=== PATIENT | female | born 1945 | race Caucasian/White ===

== ENCOUNTER 2019-05-24 14:30 | Outpatient (CLI) | payer MEDICARE ==
--- NOTE | 2019-05-25 09:35 | Mammography Report ---
Reason: ROUTINE MAMMO Procedure Date: 05/24/2019 Accession Number: [id number] / [id number] Procedure: MGS - Screening Mammo Dig Bilat CPT Code: Final Report FULL RESULT: EXAM: Screening Mammo Dig Bilat DATE: 05/24/2019 2:50 PM CLINICAL HISTORY: Screening encounter. History of nulliparity. TECHNIQUE: (B) - Bilateral CC, laterally exaggerated CC, MLO views were obtained. COMPARISON: 10/22/2014 through 04/27/2011. PARENCHYMAL PATTERN: (D) - The breast(s) demonstrate(s) heterogeneously dense fibroglandular parenchyma. FINDINGS: There are no suspicious masses, calcifications, or areas of distortion. IMPRESSION: Negative examination. BI-RADS category 1. RECOMMENDATION: (ANNUAL) - Recommend routine annual screening mammography. BI-RADS CATEGORY: (1) - Negative. STANDARD QUALIFYING STATEMENTS: 1. This examination was reviewed with the aid of Computer-Aided Detection (CAD). 2. A negative or benign imaging report should not preclude biopsy if clinically suspicious findings are present. 3. Dense breasts may obscure an underlying neoplasm. 4. This examination was reviewed without the aid of 3D breast imaging (tomosynthesis).
== END 2019-05-24 14:31 | disposition home or self-care (01) ==
LOC: DI.S 14:30
PROVIDERS: ATTEND Nurse Practitioner Family
DX: Z12.31 Encounter for screening mammogram for malignant neoplasm of breast (principal)
CPT/HCPCS: 77067

== ENCOUNTER 2021-04-23 15:41 | Outpatient (CLI) | payer MEDICARE ==
[2021-04-23 19:53] LABS: BASOPHILS # (AUTO) 0.1 10^3/uL (0.0-0.1); BASOPHILS % (AUTO) 1.3 %; EOSINOPHILS # (AUTO) 0.3 10^3/uL (0.0-0.7); EOSINOPHILS % (AUTO) 6.2 %; HCT - HEMATOCRIT 42.3 % (37.0-47.0); HGB - HEMOGLOBIN 13.1 g/dL (12.0-16.0); LYMPHOCYTES # (AUTO) 1.7 10^3/uL (1.5-3.5); LYMPHOCYTES % (AUTO) 32.7 %; MEAN CORPUSCULAR HEMOGLOBIN 31.1 pg (27.0-31.0); MEAN CORPUSCULAR VOLUME 100.5 fL (81.0-99.0); MEAN PLATELET VOLUME 12.3 fL (7.9-10.8); MONOCYTES # (AUTO) 0.3 10^3/uL (0.0-1.0); MONOCYTES % (AUTO) 5.9 %; NEUTROPHILS # (AUTO) 2.9 10^3/uL (1.5-6.6); NEUTROPHILS % (AUTO) 53.9 %; PLT - PLATELET COUNT 215 10^3/uL (130-450); RED BLOOD COUNT 4.21 10^6/uL (4.20-5.40); WHITE BLOOD COUNT 5.3 x10^3/uL (4.8-10.8)
[2021-04-23 20:19] LABS: ALBUMIN 4.2 g/dL (3.2-5.5); ALBUMIN/GLOBULIN RATIO 1.4 (1.0-2.2); ALKALINE PHOSPHATASE 84 IU/L (42-121); ALT ALANINE AMINOTRANSFERASE 19 IU/L (10-60); AST ASPARTATE AMINOTRANSFERASE 23 IU/L (10-42); BILIRUBIN,TOTAL 0.5 mg/dL (0.2-1.0); BUN - BLOOD UREA NITROGEN 22 mg/dL (6-20); CALCIUM 9.6 mg/dL (8.5-10.3); CARBON DIOXIDE - CO2 30 mmol/L (21-32); CHLORIDE 104 mmol/L (101-111); CHOL/HDL RATIO 3.2 (<4.4); CHOLESTEROL 188 mg/dL; CREATININE 0.6 mg/dL (0.4-1.0); GFR - MDRD 98 (>89); GLUCOSE 97 mg/dL (70-100); HDL CHOLESTEROL 58 mg/dL; LDL CHOLESTEROL,CALCULATED 109 mg/dL; LDL/HDL RATIO 1.9 (<4.4); POTASSIUM 3.7 mmol/L (3.5-5.0); SODIUM 142 mmol/L (135-145); TOTAL PROTEIN 7.1 g/dL (6.7-8.2); TRIGLYCERIDES 103 mg/dL; VLDL CHOLESTEROL 21 mg/dL
[2021-04-23 20:31] LABS: THYROID STIMULATING HORMONE 4.67 uIU/mL (0.34-5.60)
== END 2021-04-23 15:42 | disposition home or self-care (01) ==
LOC: LAB.S 15:41
PROVIDERS: ATTEND Nurse Practitioner Family
DX: E78.5 Hyperlipidemia, unspecified (principal); F51.09 Other insomnia not due to a substance or known physiological condition
CPT/HCPCS: 36415; 80053; 80061; 83721; 84443; 85025

== ENCOUNTER 2021-04-27 17:38 | Outpatient (CLI) | payer MEDICARE | END 2021-04-27 17:39 | disposition home or self-care (01) | LOC: LAB.S 17:38 | PROVIDERS: ATTEND Nurse Practitioner Family | DX: D75.89 Other specified diseases of blood and blood-forming organs (principal) | CPT/HCPCS: 36415; 82607; 82746; 82977 ==

== ENCOUNTER 2022-05-14 15:43 | Outpatient (CLI) | payer MEDICARE ==
--- NOTE | 2022-05-14 17:09 | XRAY Report ---
PROCEDURE: Knee 3 View LT INDICATIONS: LEFT KNEE PAIN TECHNIQUE: 3 views of the left knee(s) were acquired. COMPARISON: None. FINDINGS: Bones: No fractures or dislocations. No suspicious bony lesions. Soft tissues: No joint effusion. No suspicious soft tissue calcifications. IMPRESSION: No evidence acute bony abnormality of the left knee. If clinical suspicion and/or symptoms persist, further assessment with repeat plain films or advanced imaging (e.g., CT, MRI, or bone scan) may be helpful for further assessment. Reviewed by: Ramakrishna Leslie MD on 05/14/2022 5:08 PM PST Approved by: Ramakrishna Leslie MD on 05/14/2022 5:08 PM PST Station ID: [id number]
--- NOTE | 2022-05-14 17:49 | XRAY Report ---
PROCEDURE: Lumbar Spine 2 View INDICATIONS: VERTEBROGENIC LOW BACK PAIN TECHNIQUE: 2 views of the lumbar spine were acquired. COMPARISON: None. FINDINGS: Bones: 5 gah-rtj-ebwkhle vertebrae are present. There is normal bony alignment. No vertebral body compression fractures. No suspicious bony lesions. Disc space narrowing and hypertrophic facet join ts noted in the lower lumbar spine with L4-5 foraminal stenosis. Soft tissues: Overlying bowel gas pattern is normal. No suspicious soft tissue calcifications. Larg e amount of fecal debris in the right colon IMPRESSION: Degenerative disc disease and arthropathy without fracture or malalignment. L4-5 foraminal stenosis. Large amount of fecal debris in the right colon Reviewed by: Gaudencio Andrew MD on 05/14/2022 4:48 PM AKST Approved by: Gaudencio Andrew MD on 05/14/2022 4:48 PM AKST Station ID: [id number]
--- NOTE | 2022-05-14 18:06 | XRAY Report ---
PROCEDURE: Thoracic Spine 2 View INDICATIONS: THORACIC BACK PAIN TECHNIQUE: 2 views of the thoracic spine were acquired. COMPARISON: 05/02/2015 FINDINGS: Bones: No fractures or dislocations. No suspicious bony lesions. 12 pairs of ribs are noted, and a ppear intact where visualized. Generalized decreased osseous mineralization present. Soft tissues: No paravertebral stripe thickening. IMPRESSION: Osteopenia without fracture or malalignment Reviewed by: Gaudencio Andrew MD on 05/14/2022 5:04 PM AK Approved by: Guadencio Andrew MD on 05/14/2022 5:04 PM AK Station ID: [id number]
--- NOTE | 2022-05-14 18:32 | XRAY Report ---
PROCEDURE: Hip w/Pelvis 1V LT INDICATIONS: LEFT HIP PAIN TECHNIQUE: AP pelvis with lateral view(s) of the left hip(s). COMPARISON: None. FINDINGS: Bones: No fractures or dislocations. Pelvic ring appears intact. No suspicious bony lesions. Soft tissues: The visualized bowel gas pattern is normal. No suspicious soft tissue calcifications. IMPRESSION: Unremarkable left hip radiograph Reviewed by: Gaudencio Andrew MD on 05/14/2022 5:30 PM [place] Approved by: Gaudencio Andrew MD on 05/14/2022 5:30 PM [place] Station ID: [id number]
[2022-05-14 19:55] LABS: BASOPHILS % (AUTO) 0.7 %; HGB - HEMOGLOBIN 12.9 g/dL (12.0-16.0); LYMPHOCYTES % (AUTO) 23.9 %; MEAN CORPUSCULAR HEMOGLOBIN 31.6 pg (27.0-31.0); MEAN CORPUSCULAR HGB CONC 31.5 g/dL (32.0-36.0); MEAN CORPUSCULAR VOLUME 100.5 fL (81.0-99.0); MEAN PLATELET VOLUME 12.8 fL (7.9-10.8); MONOCYTES # (AUTO) 0.4 10^3/uL (0.0-1.0); MONOCYTES % (AUTO) 9.9 %; NEUTROPHILS # (AUTO) 2.7 10^3/uL (1.5-6.6); NEUTROPHILS % (AUTO) 64.3 %; PLT - PLATELET COUNT 158 10^3/uL (130-450); RED BLOOD COUNT 4.08 10^6/uL (4.20-5.40); RED CELL DISTRIBUTION WIDTH 12.2 % (12.0-15.0); WHITE BLOOD COUNT 4.2 x10^3/uL (4.8-10.8)
[2022-05-14 20:09] LABS: ALBUMIN/GLOBULIN RATIO 1.4 (1.0-2.2); ALKALINE PHOSPHATASE 80 IU/L (42-121); ALT ALANINE AMINOTRANSFERASE 230 IU/L (10-60); AST ASPARTATE AMINOTRANSFERASE 143 IU/L (10-42); BILIRUBIN,TOTAL 0.4 mg/dL (0.2-1.0); BUN - BLOOD UREA NITROGEN 31 mg/dL (6-20); CARBON DIOXIDE - CO2 30 mmol/L (21-32); CHLORIDE 103 mmol/L (101-111); CREATININE 0.6 mg/dL (0.4-1.0); GFR - MDRD 97 (>89); GLUCOSE 92 mg/dL (70-100); POTASSIUM 3.9 mmol/L (3.5-5.0); SODIUM 138 mmol/L (135-145); TOTAL PROTEIN 6.8 g/dL (6.7-8.2)
[2022-05-14 20:18] LABS: CRP - C-REACTIVE PROTEIN < 1.0 mg/dL (0-1.0)
== END 2022-05-14 15:44 | disposition home or self-care (01) ==
LOC: DI.S 15:43
PROVIDERS: ATTEND Nurse Practitioner Family
DX: M25.562 Pain in left knee (principal); M25.552 Pain in left hip; M47.816 Spondylosis without myelopathy or radiculopathy, lumbar region; M85.88 Other specified disorders of bone density and structure, other site; M48.061 Spinal stenosis, lumbar region without neurogenic claudication; D75.89 Other specified diseases of blood and blood-forming organs; R53.81 Other malaise; T56.1X1A Toxic effect of mercury and its compounds, accidental (unintentional), initial encounter; Z77.010 Contact with and (suspected) exposure to arsenic
CPT/HCPCS: 36415; 80053; 82175; 82607; 82746; 83825; 85025; 85651; 86140

== ENCOUNTER 2022-05-31 14:56 | Outpatient (CLI) | payer MEDICARE ==
[2022-05-31 20:17] LABS: ALKALINE PHOSPHATASE 87 IU/L (42-121); ALT ALANINE AMINOTRANSFERASE 55 IU/L (10-60); AST ASPARTATE AMINOTRANSFERASE 33 IU/L (10-42); BILIRUBIN,TOTAL 0.4 mg/dL (0.2-1.0); TOTAL PROTEIN 6.8 g/dL (6.7-8.2)
[2022-05-31 20:27] LABS: BILIRUBIN,DIRECT < 0.1 mg/dL (0.1-0.5)
[2022-06-02 04:08] LABS: HCV AB <0.1 s/co ratio (0.0-0.9)
== END 2022-05-31 14:57 | disposition home or self-care (01) ==
LOC: LAB.S 14:56
PROVIDERS: ATTEND Nurse Practitioner Family
DX: R94.5 Abnormal results of liver function studies (principal); Z11.59 Encounter for screening for other viral diseases
CPT/HCPCS: 36415; 80076; 86803

== ENCOUNTER 2023-01-05 16:49 | Outpatient (CLI) | payer MEDICARE ==
--- NOTE | 2023-01-06 15:32 | XRAY Report ---
PROCEDURE: Toe(s) LT INDICATIONS: LEFT 2ND TOE PAIN TECHNIQUE: 3 views of the second toe(s) acquired. COMPARISON: none FINDINGS: Bones: Avulsion fracture at the base of the distal second phalaynxNo with intra-articular extension. Suspicious bony lesions. Soft tissues: No suspicious soft tissue densities. IMPRESSION: Image articular avulsion fracture at the base of the second distal phalanx. Reviewed by: Lori Rod MD on 01/06/2023 3:30 PM PDT Approved by: Lori Rod MD on 01/06/2023 3:30 PM PDT Station ID: [id number]
== END 2023-01-05 23:59 | disposition home or self-care (01) ==
LOC: DI.S 16:49
PROVIDERS: ATTEND Internal Medicine
DX: S92.532A Displaced fracture of distal phalanx of left lesser toe(s), initial encounter for closed fracture (principal)
CPT/HCPCS: 73660

== ENCOUNTER 2023-01-07 18:50 | Outpatient (CLI) | payer MEDICARE ==
--- NOTE | 2023-01-10 03:07 | CT Report ---
PROCEDURE: THORACIC SPINE WO INDICATIONS: THORACIC BACK PAIN TECHNIQUE: Noncontrast 3 mm thick sections acquired through the region of interest in the thoracic spine. Sagit anne and coronal reformats were then constructed. For radiation dose reduction, the following was used : automated exposure control, adjustment of mA and/or kV according to patient size. COMPARISON: Thoracic spine x-ray 05/14/2022.. FINDINGS: Image quality: Excellent. Bones: There is a minimal rightward curvature of the thoracic spine. No acute vertebral body stuart wallace fractures. There is mild multilevel degenerative disease predominantly within the mid thoracic s pine. No suspicious sclerotic or lytic bony lesions. Central spinal canal is of normal overall calib er. No high-grade spinal canal or neuroforaminal narrowing. Soft tissues: No paravertebral masses or hematomas. Visualized posteromedial lungs appear clear. IMPRESSION: 1. No fractures or subluxation. 2. Mild multilevel degenerative disc disease. Reviewed by: Ian Chapman MD on 01/10/2023 3:06 AM PDT Approved by: Ian Chapman MD on 01/10/2023 3:06 AM PDT Station ID: [id number]
== END 2023-01-07 18:51 | disposition home or self-care (01) ==
LOC: DI 18:50
PROVIDERS: ATTEND Nurse Practitioner Family
DX: M51.34 Other intervertebral disc degeneration, thoracic region (principal)

== ENCOUNTER 2023-01-27 19:39 | Inpatient (IN) | payer MEDICARE ==
[2023-01-27 20:19] LABS: BASOPHILS % (AUTO) 0.1 %; HCT - HEMATOCRIT 46.7 % (37.0-47.0); HGB - HEMOGLOBIN 14.9 g/dL (12.0-16.0); LYMPHOCYTES # (AUTO) 0.6 10^3/uL (1.5-3.5); LYMPHOCYTES % (AUTO) 3.8 %; MEAN CORPUSCULAR HEMOGLOBIN 30.6 pg (27.0-31.0); MEAN CORPUSCULAR HGB CONC 31.9 g/dL (32.0-36.0); MEAN CORPUSCULAR VOLUME 95.9 fL (81.0-99.0); MEAN PLATELET VOLUME 12.7 fL (7.9-10.8); MONOCYTES # (AUTO) 0.3 10^3/uL (0.0-1.0); MONOCYTES % (AUTO) 1.9 %; NEUTROPHILS % (AUTO) 93.9 %; PLT - PLATELET COUNT 139 10^3/uL (130-450); RED BLOOD COUNT 4.87 10^6/uL (4.20-5.40); RED CELL DISTRIBUTION WIDTH 12.9 % (12.0-15.0); WHITE BLOOD COUNT 14.9 x10^3/uL (4.8-10.8)
[2023-01-27 20:30] LABS: INR 1.1 (0.8-1.2); PT - PROTHROMBIN TIME 11.9 secs (9.9-12.6)
[2023-01-27 20:33] LABS: ALBUMIN 4.7 g/dL (3.2-5.5); ALBUMIN/GLOBULIN RATIO 1.6 (1.0-2.2); BILIRUBIN,TOTAL 1.2 mg/dL (0.2-1.0); CREATININE 0.7 mg/dL (0.6-1.3); MAGNESIUM 1.9 mg/dL (1.7-2.3); POTASSIUM 3.8 mmol/L (3.5-4.5); TOTAL PROTEIN 7.6 g/dL (6.4-8.9)
[2023-01-27] MEDS ORDERED: MORPHINE 2 MG/ML CARPUJECT IVP STA (20:34)
[2023-01-27] MEDS ORDERED: SODIUM CHLORIDE 0.9% 1,000 ML IV STA (20:35)
[2023-01-27] MEDS ORDERED: ONDANSETRON 4 MG/2 ML VIAL IVP STA (20:35)
--- NOTE | 2023-01-27 20:38 | ED Physician Documentation ---
History of Present Illness - Stated complaint Stated Complaint: ABD PX - Chief complaint Chief Complaint: Abd Pain - History obtained from History obtained from: Patient - Additonal information Additional information: 77yF, previously healthy with no history of abdominal surgeries, presents from clinic with BL lower abdominal pain since last night with associated nausea and one episode of nbnb vomiting. no BM today but she had a well formed brown stool yesterday. denies back pain or urinary symptoms. denies fever Review of Systems Constitutional: denies: Fever, Chills Cardiac: denies: Chest pain / pressure Respiratory: denies: Dyspnea GI: reports: Abdominal Pain, Nausea, Vomiting. denies: Constipation, Diarrhea, Bloody / black stool : denies: Dysuria, Frequency, Hematuria Musculoskeletal: denies: Back pain PD PAST MEDICAL HISTORY - Past Medical History Cardiovascular: None Respiratory: None Endocrine/Autoimmune: None GI: Other : None, Retention, Incontinence, Frequency HEENT: Other Psych: None Musculoskeletal: Osteoarthritis Derm: None - Past Surgical History General: Colonoscopy HEENT: Cataracts, Tonsil/Adenoidectomy - Present Medications Home Medications: Ambulatory Orders Medication Instructions Recorded Confirmed Ascorbic Acid 1,000 gm PO DAILY 08/24/13 08/24/13 Cholecalciferol (Vitamin D3) 1 cap PO DAILY 08/24/13 08/24/13 [Vitamin D] Krill Oil 500 mg PO DAILY 08/24/13 08/24/13 Lactobacillus Combo No.6 1 each PO DAILY 08/24/13 08/24/13 [Probiotic Complex] Multivitamin [Multivitamins] 1 cap PO DAILY 08/24/13 08/24/13 - Allergies Allergies/Adverse Reactions: Allergies Allergy/AdvReac Type Severity Reaction Status Date / Time Macrolide Antibiotics AdvReac Nausea Unverified 01/27/23 19:57 PD ED PE NORMAL - Vitals Vital signs reviewed: Yes - General General: Alert and oriented X 3, No acute distress, Well developed/nourished - HEENT HEENT: Atraumatic, PERRL, EOMI - Neck Neck: Supple, no meningeal sign - Cardiac Cardiac: RRR - Respiratory Respiratory: No respiratory distress, Clear bilaterally - Abdomen Abdomen: Other (BL LQ ttp) - Back Back: No CVA TTP Results - Vitals Vitals: Vital Signs - 24 hr 01/27/23 01/27/23 19:46 21:28 Temperature 37.5 C Heart Rate 82 88 Respiratory 19 16 Rate Blood Pressure 127/57 L 154/78 H O2 Saturation 99 94 Oxygen O2 Source Room air - Labs Labs: Laboratory Tests 01/27/23 01/27/23 01/27/23 20:11 20:11 20:11 WBC 14.9 H RBC 4.87 Hgb 14.9 Hct 46.7 MCV 95.9 MCH 30.6 MCHC 31.9 L RDW 12.9 Plt Count 139 MPV 12.7 H Neut # (Auto) 14.0 H Lymph # (Auto) 0.6 L Grainger # (Auto) 0.3 Eos # (Auto) 0.0 Baso # (Auto) 0.0 Absolute Nucleated RBC 0.00 Nucleated RBC % 0.0 PT 11.9 INR 1.1 Sodium 131 L Potassium 3.8 Chloride 97 L Carbon Dioxide 26 Anion Gap 8.0 BUN 18 Creatinine 0.7 Estimated GFR (MDRD) 81 L Glucose 112 H Lactic Acid Calcium 10.0 Magnesium 1.9 Total Bilirubin 1.2 H AST 22 ALT 15 Alkaline Phosphatase 106 Total Protein 7.6 Albumin 4.7 Globulin 2.9 Albumin/Globulin Ratio 1.6 Lipase 15 Urine Color Urine Clarity Urine pH Ur Specific Gilbert Urine Protein Urine Glucose (UA) Urine Ketones Urine Occult Blood Urine Nitrite Urine Bilirubin Urine Urobilinogen Ur Leukocyte Esterase Urine RBC Urine WBC Ur Squamous Epith Cells Urine Bacteria Urine Mucus Ur Microscopic Review Urine Culture Comments 01/27/23 01/27/23 20:11 20:30 WBC RBC Hgb Hct MCV MCH MCHC RDW Plt Count MPV Neut # (Auto) Lymph # (Auto) Grainger # (Auto) Eos # (Auto) Baso # (Auto) Absolute Nucleated RBC Nucleated RBC % PT INR Sodium Potassium Chloride Carbon Dioxide Anion Gap BUN Creatinine Estimated GFR (MDRD) Glucose Lactic Acid 1.9 Calcium Magnesium Total Bilirubin AST ALT Alkaline Phosphatase Total Protein Albumin Globulin Albumin/Globulin Ratio Lipase Urine Color YELLOW Urine Clarity CLEAR Urine pH 6.5 Ur Specific Gilbert 1.025 Urine Protein TRACE Urine Glucose (UA) NEGATIVE Urine Ketones 40 H Urine Occult Blood SMALL H Urine Nitrite NEGATIVE Urine Bilirubin NEGATIVE Urine Urobilinogen 0.2 (NORMAL) Ur Leukocyte Esterase NEGATIVE Urine RBC 11-25 H Urine WBC 4-5 Ur Squamous Epith Cells FEW Squamous Urine Bacteria Few Urine Mucus Few Strands Ur Microscopic Review INDICATED Urine Culture Comments NOT INDICATED PD Medical Decision Making - ED course ED course: 77yF presents to the ED with BL LQ pain and nausea. 8/10 pain improved with 4mg IV morphine. nausea improved with IV zofran. 1 L IVF ordered. cbc, abdominal panel, lactate, CT ap with iv contrast ordered. Labs remarkable for leukocytosis with white blood cell count 14.9. also with hyponatremia Na 131 (baseline 138). tbili is elevated to 1.2 today as well. will f/u ct results. CT showing enteritis with intraperitoneal free fluid and mesenteric inflammation. admitted to telehealth hospitalist. Departure - Departure Clinical Impression: Vomiting, Abdominal pain, Leukocytosis, Hyponatremia, Enteritis Condition: Fair Forms: PCP List
[2023-01-27 20:47] LABS: BILIRUBIN,URINE NEGATIVE (NEGATIVE); GLUCOSE, URINE (UA) NEGATIVE (NEGATIVE); KETONES,URINE (UA) 40 mg/dL (NEGATIVE); LEUKOCYTE ESTERASE, URINE NEGATIVE (NEGATIVE); NITRITE,URINE NEGATIVE (NEGATIVE); OCCULT BLOOD,URINE SMALL (NEGATIVE); PH,URINE 6.5 PH (5.0-7.5); PROTEIN,URINE TRACE mg/dL (NEGATIVE); UROBILINOGEN,URINE 0.2 (NORMAL) E.U./dL (NORMAL)
[2023-01-27 20:51] LABS: CLARITY,URINE CLEAR (CLEAR)
[2023-01-27] MEDS ORDERED: iohexoL-300 100 ML VIAL ONE (20:52)
[2023-01-27 21:00] LABS: BACTERIA,URINE Few /HPF (None Seen); MUCUS,URINE Few Strands; SQUAMOUS EPITHELIAL CELL,UR FEW Squamous (<= Few)
[2023-01-27] MEDS ORDERED: iohexoL-300 100 ML VIAL IVP ONE (22:01)
--- NOTE | 2023-01-27 23:13 | CT Report ---
PROCEDURE: ABDOMEN/PELVIS W INDICATIONS: BL LQ pain since last night CONTRAST: 100mL Omni 300 TECHNIQUE: After the administration of intravenous contrast, 5 mm thick sections acquired from the diaphragms to the symphysis. 5 mm thick coronal and sagittal reformats were acquired. For radiation dose reducti on, the following was used: automated exposure control, adjustment of mA and/or kV according to shanel ent size. COMPARISON: CT abdomen pelvis 09/24/2013, MR abdomen 10/25/2015, 01/08/2019, 07/26/2022. FINDINGS: Image quality: Excellent. Lung bases:There is mild dependent atelectasis. Heart: Heart is normal in size. There is a small hiatal hernia. ABDOMEN: Liver:There is a cyst superiorly in the left hepatic lobe measuring up to 2.1 cm. A hypodense focus is also demonstrated within the right hepatic lobe measuring 0.8 cm on series 3 image 15 which is too small to characterize but likely represents a cyst. Gallbladder:Gallbladder is distended without calcified gallstones or wall thickening. Biliary ducts: No biliary ductal dilatation. Pancreas:A few cystic lesions are redemonstrated within the pancreas including a cyst in the uncinat e process measuring up to approximately 1.2 cm and a cyst at the junction of the pancreatic body and tail measuring 0.8 cm. The findings appear similar to the recent MRI of 07/23/2022 and progressively i ncreased compared to the prior studies. No definite pancreatic duct dilatation. Spleen: Normal in size. Adrenal Glands: No adrenal nodules. Kidneys and Ureters: No hydronephrosis. There is a 0.2 cm nonobstructing left renal stone. Stomach and Bowel:There is segmental mild small bowel wall thickening and enhancement in the left lo wer quadrant. Small and large bowel otherwise demonstrate normal caliber and wall thickness. Appendix is not discretely visualized but no definite pericecal inflammatory changes to suggest appendicitis. Peritoneum:There is mild fat stranding within the mesentery in the left abdomen with minimal interlo op free fluid. A small amount of intraperitoneal free fluid is also demonstrated within the pelvis. N o free air. Ventral Wall: No hernia. Abdominal Nodes: No retroperitoneal or mesenteric adenopathy by size criteria. Vessels: Aorta and inferior vena cava are normal in size. PELVIS: Pelvic Organs: Unremarkable. Bladder: Unremarkable. Pelvic Nodes: No enlarged lymph nodes. Miscellaneous: No inguinal hernias. Bones: Visualized osseous structures demonstrate no suspicious lesions. IMPRESSION: 1. Mild fat stranding in the mesentery within the left abdomen with minimal interloop free fluid. The findings are suggestive of reactive changes secondary to an infectious or inflammatory enteritis. 2. Small amount of intraperitoneal free fluid in the pelvis is also nonspecific but likely reactive. 3. Distention of the gallbladder without calcified gallstones or CT evidence of cholecystitis. 4. Small cystic lesions redemonstrated within the pancreas compatible side branch IPMN. Findings are similar to the prior MRI of 07/26/2022 and slightly increased over time compared to the previous studi es. Reviewed by: Ian Chapman MD on 01/27/2023 11:12 PM PDT Approved by: Ian Chapman MD on 01/27/2023 11:12 PM PDT Station ID: [id number]
[2023-01-28] MEDS ORDERED: CIPROFLOXACIN 400 MG/200 ML 400 MG/200 ML BAG IV STA (00:41)
[2023-01-28] MEDS ORDERED: metroNIDAZOLE 500 MG/100 ML 500 MG/100 ML BAG IV ONE (00:42)
[2023-01-28] MEDS ORDERED: MORPHINE 2 MG/ML CARPUJECT IVP STA (00:45)
--- NOTE | 2023-01-28 02:33 | HISTORY & PHYSICAL EXAMINATION ---
History and Physical - History and Physical chief complaint abdominal pain constipation since Tuesday. History of present illness this is a 77 year old female who presented to the emergency room with chief complaint of bilateral lower abdominal pain since Tuesday associated with some nausea and some chills no fever also constipated.patient denies any fever nourish headaches no blurred vision has some nausea no travel history no severe contact. Persistent symptoms prompted patient to seek medical attention in the emergency room feels evaluated CT abdomen and pelvis suggestive of enteritis mesenteric fat stranding patient was given morphine in the emergency room with mild relief still has some pain. Patient been admitted to the hospital for further management diagnostic workup. She stated that all had lab she's been having bowel issues and does not tolerate antibiotics over the patient was given antibiotics in the emergency room. She's had multiple issues social rather stay of any antibiotics at this time. She does take probiotic at home for bowel issues. She is allergic to micro lights Social she does not drink or smoke or take anything. Family history father of heart attack Surgical history no abdominal surgeries Reveal systems to the left and system review negative other than those mentioned above. Physical exams Vital signs stable HEENT normocephalic atraumatic Chest good entry bilateral no wishes or crackles Cardiovascular system regular rate and rhythm GI soft bilateral lower abdominal tenderness no rebound no garden bowel sounds positive. extremities no edema no ulcers no cyanosis no clubbing Laboratory and imaging revealed Assessment abdominal pain Enteritis Constipation Plan patient was admitted to hospital under hospital service MedSur no telemetry required We please patient on a liquid diet IV morphine 2 mg Q4 hours as needed for severe pain Antiemetic with Zofran 4 mg IV Q6 hours as needed Bowel regimen MiraLAX 17 g twice a day DVT prophylaxis heparin 5070 acute 12 hours. Will monitor the patient closely at this time no surgical indication does not appear to be surgical abdomen and also hold off any antibiotics plan discussed with patient and her at the bedside answer all your questions appropriately to the best of my ability. This history and physical exams was taken virtually through video assisted examination with nurse holding the stethoscope and guiding the examination.
[2023-01-28] MEDS: SODIUM CHLORIDE 0.9% 1,000 ML IV SCH ×3 (03:11→23:11)
[2023-01-28] MEDS: HEPARIN 5,000 UNIT/ML VIAL SUBQ SCH ×2 (09:06→20:05)
[2023-01-28] MEDS: SODIUM CHLORIDE FLUSH 0.9% 10 ML SYRINGE IVP SCH ×3 (09:07→23:45)
[2023-01-28 09:26] LABS: BASOPHILS % (AUTO) 0.3 %; HCT - HEMATOCRIT 36.5 % (37.0-47.0); HGB - HEMOGLOBIN 12.1 g/dL (12.0-16.0); LYMPHOCYTES # (AUTO) 0.8 10^3/uL (1.5-3.5); MEAN CORPUSCULAR HEMOGLOBIN 31.5 pg (27.0-31.0); MEAN CORPUSCULAR HGB CONC 33.2 g/dL (32.0-36.0); MEAN CORPUSCULAR VOLUME 95.1 fL (81.0-99.0); MEAN PLATELET VOLUME 12.7 fL (7.9-10.8); MONOCYTES # (AUTO) 0.7 10^3/uL (0.0-1.0); MONOCYTES % (AUTO) 4.3 %; NEUTROPHILS # (AUTO) 13.8 10^3/uL (1.5-6.6); NEUTROPHILS % (AUTO) 90.1 %; PLT - PLATELET COUNT 110 10^3/uL (130-450); RED BLOOD COUNT 3.84 10^6/uL (4.20-5.40); RED CELL DISTRIBUTION WIDTH 13.1 % (12.0-15.0); WHITE BLOOD COUNT 15.3 x10^3/uL (4.8-10.8)
[2023-01-28 09:42] LABS: ALBUMIN 3.6 g/dL (3.2-5.5); ALBUMIN/GLOBULIN RATIO 1.6 (1.0-2.2); CREATININE 0.6 mg/dL (0.6-1.3); POTASSIUM 3.8 mmol/L (3.5-4.5); TOTAL PROTEIN 5.9 g/dL (6.4-8.9)
[2023-01-28] MEDS: SODIUM CHLORIDE FLUSH 0.9% 10 ML SYRINGE IVP PRN (10:32)
[2023-01-28] MEDS: MORPHINE 2 MG/ML CARPUJECT IVP PRN ×3 (10:32→23:10)
[2023-01-28] MEDS: ONDANSETRON 4 MG/2 ML VIAL IVP PRN ×2 (10:32→23:10)
--- NOTE | 2023-01-28 14:03 | PHARMACY PROGRESS NOTE ---
- Best Possible Medication History Admit Date and Time: 01/28/23 0149 Processed by: Pharmacy Medication History completed: Yes Patient Interview: Completed Secondary Source(s): Written medication list PATIENT IS BEING TREATED BY A INSURANCE SALES EXECUTIVE AND HAS AN EXTENSIVE LIST OF SUPPLEMENTS ON HER AND APPEARS TO BE A GOOD HISTORIAN As the person ultimately responsible for medication therapy, providers are able to order a medication from an existing home medication list in [facility] via the "Reconcile Routine" prior to Confirmation of that medication by faculty support coordinator. Such practice is discouraged except when the physician, in their clinical judgment, deems that a medical need exists for a medication without regard to previous use.
[2023-01-28] MEDS ORDERED: QUEtiapine 25 MG TABLET PO STA (21:03)
[2023-01-29 05:43] LABS: BASOPHILS % (AUTO) 0.1 %; HGB - HEMOGLOBIN 11.3 g/dL (12.0-16.0); LYMPHOCYTES # (AUTO) 0.6 10^3/uL (1.5-3.5); LYMPHOCYTES % (AUTO) 4.1 %; MEAN CORPUSCULAR HEMOGLOBIN 31.6 pg (27.0-31.0); MEAN CORPUSCULAR HGB CONC 32.3 g/dL (32.0-36.0); MEAN CORPUSCULAR VOLUME 97.8 fL (81.0-99.0); MEAN PLATELET VOLUME 12.7 fL (7.9-10.8); MONOCYTES # (AUTO) 0.4 10^3/uL (0.0-1.0); MONOCYTES % (AUTO) 2.7 %; NEUTROPHILS # (AUTO) 13.2 10^3/uL (1.5-6.6); NEUTROPHILS % (AUTO) 92.1 %; PLT - PLATELET COUNT 109 10^3/uL (130-450); RED BLOOD COUNT 3.58 10^6/uL (4.20-5.40); RED CELL DISTRIBUTION WIDTH 13.2 % (12.0-15.0); WHITE BLOOD COUNT 14.3 x10^3/uL (4.8-10.8)
[2023-01-29 06:03] LABS: ALBUMIN 3.1 g/dL (3.2-5.5); ALBUMIN/GLOBULIN RATIO 1.3 (1.0-2.2); BILIRUBIN,TOTAL 0.7 mg/dL (0.2-1.0); CALCIUM 8.5 mg/dL (8.5-10.3); CREATININE 0.5 mg/dL (0.6-1.3); POTASSIUM 3.4 mmol/L (3.5-4.5); TOTAL PROTEIN 5.4 g/dL (6.4-8.9)
[2023-01-29] MEDS: SODIUM CHLORIDE 0.9% 1,000 ML IV SCH ×2 (09:11→21:26)
[2023-01-29] MEDS: SODIUM CHLORIDE FLUSH 0.9% 10 ML SYRINGE IVP SCH ×2 (09:12→17:20)
[2023-01-29] MEDS: HEPARIN 5,000 UNIT/ML VIAL SUBQ SCH ×2 (09:49→20:54)
--- NOTE | 2023-01-29 15:28 | MRI Report ---
PROCEDURE: ABDOMEN W/WO INDICATIONS: abd pain with pancreatic cysts CONTRAST: GADAVIST 6.4 ML TECHNIQUE: Coronal ultra fast SE, axial 2D spoiled GE in- and [id number]; axial breath-hold T2 fast SE. Dynam ic axial ultra fast GE during the administration of contrast; post-contrast coronal ultra fast GE or 2D spoiled GE with fat saturation from the hepatic dome to the iliac crests. Optional diffusion weig hted imaging and ADC may be performed. COMPARISON: CT abdomen pelvis 01/27/2023 FINDINGS: Lung bases : Small bilateral pleural effusions. Liver: No solid mass. Gallbladder and biliary tree: Gallbladder is distended. No definite gallstones visualized. No biliary ductal dilation. Spleen: No splenomegaly. Pancreas: No main ductal dilation demonstrated. A few small pancreatic cysts present, for example a 1 .1 cm cyst at the pancreatic head (series 2 image 15). Adrenals: No adrenal nodule. Kidneys and ureters: No hydronephrosis. No renal cystic lesion which requires follow up. No solid mas s. Bowel and peritoneum: Multiple prominent/dilated loops of small bowel are present. A definite focal c aliber transition is difficult to identify. Appendix appears prominent in caliber, 10 mm with mucosa l hyperenhancement and right lower quadrant inflammatory change and fluid present. See also images fr om same day pelvis MRI Vessels: No infrarenal aortic aneurysm. Bones: No aggressive osseous abnormality. IMPRESSION: 1. Lower abdominal inflammatory changes present suspicious for acute appendicitis. 2. Dilated loops of small bowel are present, could be reactive to the above described inflammatory pr ocess but mechanical obstruction is difficult to exclude. 3. Same-day MR of the pelvis is dictated separately. 4. Few pancreatic cysts present, nonspecific, potential sidebranch IPMNs. Imaging follow-up in 1 year is recommended. Impression #[address] Morales 1520 hours. Reviewed by: Daljit Mcghee MD on 01/29/2023 3:26 PM PDT Approved by: Daljit Mcghee MD on 01/29/2023 3:26 PM PDT Station ID: [id number]
--- NOTE | 2023-01-29 15:34 | MRI Report ---
PROCEDURE: PELVIS W/WO INDICATIONS: LOWER ABDOMINAL PAIN. CONTRAST: GADAVIST 6.4 ML TECHNIQUE: Coronal ultra fast SE, sagittal T2 FSE, axial T1 FSE, axial and coronal nonbreath-hold T2 FSE. Axial dynamic ultra fast GE during administration of contrast. Post-contrast axial and coronal ultra fast GE / 2-D spoiled GE with fat saturation from the iliac crests to the symphysis. Optional diffusion weighted imaging and ADC may be performed. COMPARISON: CT abdomen pelvis 01/27/2023, MR abdomen same day FINDINGS: Bowel and peritoneum: Right lower quadrant fat stranding and fluid present. The appendix appears dil ated, and thick-walled concerning for acute appendicitis (for example coronal STIR series 3 image 13) . Small amount of nonspecific pelvic free fluid present. Dilated loops of small bowel also present as described in the report for MR abdomen same day. Genitourinary system: Bladder wall is normal in thickness. Distal ureters are non distended. Nodes and vessels: No pathologic pelvic or inguinal adenopathy by size criteria. Iliac vessels are normal in caliber. IMPRESSION: Findings present suspicious for acute appendicitis as above. Other right lower quadrant inflammatory process such as enterocolitis with secondary involvement of the appendix difficult to fully exclude. Discussed with Dr. Morales 1520 hours. Reviewed by: Daljit Mcghee MD on 01/29/2023 3:33 PM PDT Approved by: Daljit Mcghee MD on 01/29/2023 3:33 PM PDT Station ID: [id number]
[2023-01-29] MEDS ORDERED: PIPERACILLIN/TAZOBACTAM 3.375 GM in SODIUM CHLORIDE 0.9% MINIBAG 100 ML IV ONE (16:30)
[2023-01-29] MEDS: SACCHAROMYCES BOULARDII 250 MG CAPSULE PO SCH (17:20)
--- NOTE | 2023-01-29 17:36 | PROVIDER PROGRESS NOTE ---
Assessment/Plan - Problem List (1) Abdominal pain Qualifiers: Abdominal location: lower abdomen, unspecified Qualified Code(s): R10.30 - Lower abdominal pain, unspecified Assessment/Plan: CT imaging done at admission revealed suggestion of enteritis mesenteric fat stranding. Patient was given 1 dose of IV antibiotics and further doses were held due to concern of not being an infectious process. MRI of abdomen and pelvis was done today which revealed: (2) Enteritis Assessment/Plan: Currently not on any antibiotics as thought to be noninfectious process at this time but MRI performed today see findings this may suggest otherwise.MRI of abdomen pelvis with and without contrast revealed lower abdominal inflammatory changes present suspicious for acute appendicitis. Dilated loops of small bowel are present could be reactive to the above described inflammatory process but mechanical obstruction is difficult to exclude. Few pancreatic cysts present nonspecific potential sidebranch IPMN's. Imaging follow-up in 1 year is recommended. Other right lower quadrant inflammatory process such as ente rocolitis with secondary involvement of the appendix is difficult to fully exclude. General surgery on-call was contacted and will evaluate the patient patient will be n.p.o. after midnight along with being initiated on IV Zosyn. (3) Leukocytosis Qualifiers: Leukocytosis type: bandemia Qualified Code(s): D72.825 - Bandemia Assessment/Plan: Initial white count was 14.9 following repeat next day 15.3 and On January 29 is 14.3 - Current Meds Current Meds: Current Medications Generic Name Dose Route Start Last Admin Trade Name Freq PRN Reason Stop Dose Admin Heparin Sodium (Porcine) 5,000 unit 01/28/23 09:00 01/29/23 09:49 Heparin 5,000 Unit/Ml Vial SUBQ 5,000 unit BID JERMAINE Administration Sodium Chloride 1,000 mls @ 100 mls/hr 01/28/23 02:00 01/29/23 13:30 Normal Saline 0.9% IV 100 mls/hr .Q10H JERMAINE Infusion Morphine Sulfate 2 mg 01/28/23 01:49 01/28/23 23:10 Morphine 2 Mg/Ml Carpuject IVP 2 mg Q2HR PRN Administration Pain 8 to 10 Ondansetron HCl 4 mg 01/28/23 01:49 01/28/23 23:10 Ondansetron 4 Mg/2 Ml Vial IVP 4 mg Q6HR PRN Administration Nausea / Vomiting Saccharomyces Boulardii 250 mg 01/29/23 17:00 01/29/23 17:20 Saccharomyces Boulardii 250 Mg Capsule PO 250 mg BIDWM JERMAINE Administration Sodium Chloride 10 ml 01/28/23 01:49 01/28/23 10:32 Sodium Chloride Flush 0.9% 10 Ml Syringe IVP 10 ml PRN PRN Administration NEEDED PER PROVIDER ORDERS Sodium Chloride 10 ml 01/28/23 09:00 01/29/23 17:20 Sodium Chloride Flush 0.9% 10 Ml Syringe IVP 10 ml 0100,0900,1700 JERMAINE Administration - Lab Result Lab results reviewed: Yes Fish Bone Diagrams: 01/29/23 05:25 01/29/23 05:25 - Additional Planning My Orders: My Active Orders 01/29/23 15:39 NPO except Meds [DIET] 01/29/23 16:59 QUEtiapine [SEROquel] 25 mg PO QPM PRN 01/29/23 17:00 Saccharomyces Boulardii [Florastor] 250 mg PO BIDWM 01/29/23 20:00 Piperacillin/Tazobactam [Zosyn] 3.375 gm Sodium Chloride 0.9% Minibag [Normal Saline 0.9% Minibag] 100 ml IV Q8H 01/30/23 05:00 CBC - COMP BLD CT W/AUTO DIFF [HEME] DAILYLAB CMP [COMPREHENSIVE METABOLIC PANEL] [CHEM] DAILYLAB 01/31/23 05:00 CBC - COMP BLD CT W/AUTO DIFF [HEME] DAILYLAB CMP [COMPREHENSIVE METABOLIC PANEL] [CHEM] DAILYLAB 02/01/23 05:00 CBC - COMP BLD CT W/AUTO DIFF [HEME] DAILYLAB CMP [COMPREHENSIVE METABOLIC PANEL] [CHEM] DAILYLAB 02/02/23 05:00 CBC - COMP BLD CT W/AUTO DIFF [HEME] DAILYLAB CMP [COMPREHENSIVE METABOLIC PANEL] [CHEM] DAILYLAB Subjective - Subjective Patient Reports: Other (Patient continue with abdominal pain but now seems to be mostly lower abdominal area pelvis.) Objective Vital Signs: Vital Signs - 24 hr 01/28/23 01/29/23 01/29/23 23:09 08:14 16:00 Temperature 37.4 C 37 C 36.6 C Heart Rate [ 104 H 102 H 95 Brachial] Respiratory 18 16 16 Rate Blood Pressure 117/51 L 110/47 L 121/51 L [Right Brachial artery] O2 Saturation 95 95 96 Oxygen O2 Source Room air I&O (Last 24 Hrs): Intake and Output Totals x24h 01/27/23 01/28/23 01/29/23 23:59 23:59 23:59 Intake Total 1000 2905 1755 Balance 1000 2905 1755 General: Alert, Oriented x3, Cooperative HEENT: Atraumatic Neck: Supple Neuro: Alert, Non Focal Cardiovascular: Regular rate, Normal S1, Normal S2 Respiratory: Breath sounds nml Abdomen: Other (Tender to palpation over the lower abdominal area. No rebound no guarding.) Extremities: No edema Skin: No rashes - Results Results: Laboratory Results WBC 14.3 x10^3/uL (4.8-10.8) H 01/29/23 05:25 RBC 3.58 10^6/uL (4.20-5.40) L 01/29/23 05:25 Hgb 11.3 g/dL (12.0-16.0) L 01/29/23 05:25 Hct 35.0 % (37.0-47.0) L 01/29/23 05:25 MCV 97.8 fL (81.0-99.0) 01/29/23 05:25 MCH 31.6 pg (27.0-31.0) H 01/29/23 05:25 MCHC 32.3 g/dL (32.0-36.0) 01/29/23 05:25 RDW 13.2 % (12.0-15.0) 01/29/23 05:25 Plt Count 109 10^3/uL (130-450) L 01/29/23 05:25 MPV 12.7 fL (7.9-10.8) H 01/29/23 05:25 Neut # (Auto) 13.2 10^3/uL (1.5-6.6) H 01/29/23 05:25 Lymph # (Auto) 0.6 10^3/uL (1.5-3.5) L 01/29/23 05:25 Teller # (Auto) 0.4 10^3/uL (0.0-1.0) 01/29/23 05:25 Eos # (Auto) 0.0 10^3/uL (0.0-0.7) 01/29/23 05:25 Baso # (Auto) 0.0 10^3/uL (0.0-0.1) 01/29/23 05:25 Absolute Nucleated RBC 0.00 x10^3/uL 01/29/23 05:25 Nucleated RBC % 0.0 /100WBC 01/29/23 05:25 PT 11.9 secs (9.9-12.6) 01/27/23 20:11 INR 1.1 (0.8-1.2) 01/27/23 20:11 Sodium 137 mmol/L (135-145) 01/29/23 05:25 Potassium 3.4 mmol/L (3.5-4.5) L 01/29/23 05:25 Chloride 107 mmol/L (101-111) 01/29/23 05:25 Carbon Dioxide 23 mmol/L (21-32) 01/29/23 05:25 Anion Gap 7.0 (6-13) 01/29/23 05:25 BUN 12 mg/dL (6-20) 01/29/23 05:25 Creatinine 0.5 mg/dL (0.6-1.3) L 01/29/23 05:25 Estimated GFR (MDRD) 120 (>89) 01/29/23 05:25 Glucose 81 mg/dL (74-104) 01/29/23 05:25 Lactic Acid 1.9 mmol/L (0.5-2.2) 01/27/23 20:11 Calcium 8.5 mg/dL (8.5-10.3) 01/29/23 05:25 Magnesium 1.9 mg/dL (1.7-2.3) 01/27/23 20:11 Total Bilirubin 0.7 mg/dL (0.2-1.0) 01/29/23 05:25 AST 22 IU/L (10-42) 01/29/23 05:25 ALT 11 IU/L (10-60) 01/29/23 05:25 Alkaline Phosphatase 62 IU/L (42-121) 01/29/23 05:25 Total Protein 5.4 g/dL (6.4-8.9) L 01/29/23 05:25 Albumin 3.1 g/dL (3.2-5.5) L 01/29/23 05:25 Globulin 2.3 g/dL (2.1-4.2) 01/29/23 05:25 Albumin/Globulin Ratio 1.3 (1.0-2.2) 01/29/23 05:25 Lipase 7 U/L (11-82) L 01/29/23 05:25 Urine Color YELLOW 01/27/23 20:30 Urine Clarity CLEAR (CLEAR) 01/27/23 20:30 Urine pH 6.5 PH (5.0-7.5) 01/27/23 20:30 Ur Specific [place] 1.025 (1.002-1.030) 01/27/23 20:30 Urine Protein TRACE mg/dL (NEGATIVE) 01/27/23 20:30 Urine Glucose (UA) NEGATIVE mg/dL (NEGATIVE) 01/27/23 20:30 Urine Ketones 40 mg/dL (NEGATIVE) H 01/27/23 20:30 Urine Occult Blood SMALL (NEGATIVE) H 01/27/23 20:30 Urine Nitrite NEGATIVE (NEGATIVE) 01/27/23 20:30 Urine Bilirubin NEGATIVE (NEGATIVE) 01/27/23 20:30 Urine Urobilinogen 0.2 (NORMAL) E.U./dL (NORMAL) 01/27/23 20:30 Ur Leukocyte Esterase NEGATIVE (NEGATIVE) 01/27/23 20:30 Urine RBC 11-25 /HPF (0-5) H 01/27/23 20:30 Urine WBC 4-5 /HPF (0-5) 01/27/23 20:30 Ur Squamous Epith Cells FEW Squamous (<= Few) 01/27/23 20:30 Urine Bacteria Few /HPF (None Seen) 01/27/23 20:30 Urine Mucus Few Strands 01/27/23 20:30 Ur Microscopic Review INDICATED 01/27/23 20:30 Urine Culture Comments NOT INDICATED 01/27/23 20:30 - Procedures Procedures: Procedures ENDOSC POLYPECTOMY OF LG INTEST (08/27/13) ESOPHAGOGASTRODUODENOSCOPY [EGD] W/CLOSED BIOPSY (08/27/13) ABX Reporting Has patient been on IV antibiotics over the past 48 hours?: No
[2023-01-29] MEDS: MORPHINE 2 MG/ML CARPUJECT IVP PRN ×2 (18:42→20:49)
[2023-01-29] MEDS: SODIUM CHLORIDE FLUSH 0.9% 10 ML SYRINGE IVP PRN ×2 (18:43→20:50)
[2023-01-29] MEDS: PIPERACILLIN/TAZOBACTAM 3.375 GM in SODIUM CHLORIDE 0.9% MINIBAG 100 ML IV SCH (20:17)
[2023-01-29] MEDS: SENNA 8.6 MG TABLET PO SCH (21:26)
[2023-01-29] MEDS: DOCUSATE SODIUM 250 MG CAPSULE PO SCH (21:26)
[2023-01-29] MEDS: QUEtiapine 25 MG TABLET PO PRN (23:03)
[2023-01-30] MEDS: MORPHINE 2 MG/ML CARPUJECT IVP PRN ×2 (00:19→07:12)
[2023-01-30] MEDS: SODIUM CHLORIDE FLUSH 0.9% 10 ML SYRINGE IVP SCH ×3 (00:19→17:57)
[2023-01-30] MEDS: PIPERACILLIN/TAZOBACTAM 3.375 GM in SODIUM CHLORIDE 0.9% MINIBAG 100 ML IV SCH ×3 (04:40→20:04)
[2023-01-30] MEDS: SENNA 8.6 MG TABLET PO SCH ×3 (04:41→16:17)
[2023-01-30 05:58] LABS: BASOPHILS % (AUTO) 0.2 %; EOSINOPHILS % (AUTO) 0.1 %; HCT - HEMATOCRIT 33.4 % (37.0-47.0); HGB - HEMOGLOBIN 10.8 g/dL (12.0-16.0); LYMPHOCYTES # (AUTO) 0.6 10^3/uL (1.5-3.5); LYMPHOCYTES % (AUTO) 5.1 %; MEAN CORPUSCULAR HEMOGLOBIN 31.4 pg (27.0-31.0); MEAN CORPUSCULAR HGB CONC 32.3 g/dL (32.0-36.0); MEAN CORPUSCULAR VOLUME 97.1 fL (81.0-99.0); MEAN PLATELET VOLUME 11.8 fL (7.9-10.8); MONOCYTES # (AUTO) 0.5 10^3/uL (0.0-1.0); MONOCYTES % (AUTO) 4.3 %; NEUTROPHILS # (AUTO) 10.8 10^3/uL (1.5-6.6); NEUTROPHILS % (AUTO) 89.7 %; PLT - PLATELET COUNT 126 10^3/uL (130-450); RED BLOOD COUNT 3.44 10^6/uL (4.20-5.40); RED CELL DISTRIBUTION WIDTH 13.3 % (12.0-15.0)
[2023-01-30 06:14] LABS: ALBUMIN 2.9 g/dL (3.2-5.5); ALBUMIN/GLOBULIN RATIO 1.3 (1.0-2.2); BILIRUBIN,TOTAL 0.6 mg/dL (0.2-1.0); CALCIUM 8.6 mg/dL (8.5-10.3); CREATININE 0.5 mg/dL (0.6-1.3); POTASSIUM 3.3 mmol/L (3.5-4.5); TOTAL PROTEIN 5.2 g/dL (6.4-8.9)
[2023-01-30] MEDS: SODIUM CHLORIDE 0.9% 1,000 ML IV SCH ×2 (06:46→16:46)
[2023-01-30] MEDS: SACCHAROMYCES BOULARDII 250 MG CAPSULE PO SCH ×2 (09:02→16:46)
[2023-01-30] MEDS: DOCUSATE SODIUM 250 MG CAPSULE PO SCH ×2 (09:05→16:17)
[2023-01-30] MEDS: HEPARIN 5,000 UNIT/ML VIAL SUBQ SCH ×2 (09:05→20:11)
[2023-01-30] MEDS ORDERED: POTASSIUM CHLOR 10 MEQ/100 ML 10 MEQ/100 ML BAG IV ONE (09:07)
--- NOTE | 2023-01-30 17:19 | PROVIDER PROGRESS NOTE ---
Assessment/Plan - Problem List (1) Abdominal pain Qualifiers: Abdominal location: lower abdomen, unspecified Qualified Code(s): R10.30 - Lower abdominal pain, unspecified Assessment/Plan: (1) Abdominal pain Qualifiers: Abdominal location: lower abdomen, unspecified Qualified Code(s): R10.30 - Lower abdominal pain, unspecified Assessment/Plan: CT imaging done at admission revealed suggestion of enteritis mesenteric fat stranding. Patient was given 1 dose of IV antibiotics and further doses were held due to concern of not being an infectious process. MRI of abdomen and pelvis was done today which revealed: (2) Enteritis Assessment/Plan: Currently not on any antibiotics as thought to be noninfectious process at this time but MRI performed today see findings this may suggest otherwise.MRI of abdomen pelvis with and without contrast revealed lower abdominal inflammatory changes present suspicious for acute appendicitis. Dilated loops of small bowel are present could be reactive to the above described inflammatory process but mechanical obstruction is difficult to exclude. Few pancreatic cysts present nonspecific potential sidebranch IPMN's. Imaging follow-up in 1 year is recommended. Other right lower quadrant inflammatory process such as enterocolitis with secondary involvement of the appendix is difficult to fully exclude. General surgery on-call was contacted and will evaluate the patient patient will be n.p.o. after midnight along with being initiated on IV Zosyn. 01/30- Await recommendations per general surgery. Per RN patient is to start clear liquid diet encourage walking. (3) Leukocytosis Qualifiers: Leukocytosis type: bandemia Qualified Code(s): D72.825 - Bandemia Assessment/Plan: Initial white count was 14.9 following repeat next day 15.3 and On January 29 is 14.3 (3) Leukocytosis Qualifiers: Leukocytosis type: bandemia Qualified Code(s): D72.825 - Bandemia - Current Meds Current Meds: Current Medications Generic Name Dose Route Start Last Admin Trade Name Freq PRN Reason Stop Dose Admin Docusate Sodium 250 - 500 mg 01/29/23 21:00 01/30/23 16:17 Docusate Sodium 250 Mg Capsule PO 250 mg DAILY JERMAINE Administration Heparin Sodium (Porcine) 5,000 unit 01/28/23 09:00 01/30/23 09:05 Heparin 5,000 Unit/Ml Vial SUBQ Not Given BID JERMAINE Sodium Chloride 1,000 mls @ 100 mls/hr 01/28/23 02:00 01/30/23 16:46 Normal Saline 0.9% IV 100 mls/hr .Q10H JERMAINE Administration Piperacillin Sod/Tazobactam 100 mls @ 25 mls/hr 01/29/23 20:00 01/30/23 16:35 Sod 3.375 gm/ Sodium Chloride IV Infused Q8H JERMAINE Infusion Morphine Sulfate 2 mg 01/28/23 01:49 01/30/23 07:12 Morphine 2 Mg/Ml Carpuject IVP 2 mg Q2HR PRN Administration Pain 8 to 10 Ondansetron HCl 4 mg 01/28/23 01:49 01/28/23 23:10 Ondansetron 4 Mg/2 Ml Vial IVP 4 mg Q6HR PRN Administration Nausea / Vomiting Quetiapine Fumarate 25 mg 01/29/23 16:59 01/29/23 23:03 Quetiapine 25 Mg Tablet PO 02/02/23 16:58 25 mg QPM PRN Administration Insomnia Saccharomyces Boulardii 250 mg 01/29/23 17:00 01/30/23 16:46 Saccharomyces Boulardii 250 Mg Capsule PO 250 mg BIDWM JERMAINE Administration Sodium Chloride 10 ml 01/28/23 01:49 01/29/23 20:50 Sodium Chloride Flush 0.9% 10 Ml Syringe IVP 10 ml PRN PRN Administration NEEDED PER PROVIDER ORDERS Sodium Chloride 10 ml 01/28/23 09:00 01/30/23 07:12 Sodium Chloride Flush 0.9% 10 Ml Syringe IVP 10 ml 0100,0900,1700 JERMAINE Administration - Lab Result Fish Bone Diagrams: 01/30/23 05:48 01/30/23 05:48 - Additional Planning My Orders: My Active Orders 01/29/23 16:59 QUEtiapine [SEROquel] 25 mg PO QPM PRN 01/29/23 17:00 Saccharomyces Boulardii [Florastor] 250 mg PO BIDWM 01/29/23 20:00 Piperacillin/Tazobactam [Zosyn] 3.375 gm Sodium Chloride 0.9% Minibag [Normal Saline 0.9% Minibag] 100 ml IV Q8H 01/30/23 18:00 Fluconazole [Diflucan] 100 mg PO ONCE 01/31/23 Breakfast Clear Liquid Diet [DIET] 01/31/23 05:00 CBC - COMP BLD CT W/AUTO DIFF [HEME] DAILYLAB CMP [COMPREHENSIVE METABOLIC PANEL] [CHEM] DAILYLAB 02/01/23 05:00 CBC - COMP BLD CT W/AUTO DIFF [HEME] DAILYLAB CMP [COMPREHENSIVE METABOLIC PANEL] [CHEM] DAILYLAB 02/02/23 05:00 CBC - COMP BLD CT W/AUTO DIFF [HEME] DAILYLAB CMP [COMPREHENSIVE METABOLIC PANEL] [CHEM] DAILYLAB Subjective - Subjective Patient Reports: Resting Comfortably Objective Vital Signs: Vital Signs - 24 hr 01/30/23 01/30/23 01/30/23 00:00 08:00 16:00 Temperature 36.9 C 37.3 C 36.6 C Heart Rate [ 97 89 99 Brachial] Respiratory 16 16 18 Rate Blood Pressure 115/83 H 114/53 L 124/58 L [Right Brachial artery] O2 Saturation 97 92 99 Oxygen O2 Source Room air I&O (Last 24 Hrs): Intake and Output Totals x24h 01/28/23 01/29/23 01/30/23 23:59 23:59 23:59 Intake Total 2905 2790 2333.333 Output Total 300 Balance 2905 2790 2033.333 General: Alert, Oriented x3, Cooperative HEENT: Atraumatic Neck: Supple Neuro: Alert Cardiovascular: Regular rate, Normal S1, Normal S2 Respiratory: Chest non-tender, Breath sounds nml Abdomen: Soft, Other (tender in lower abdomen) - Results Results: Laboratory Results WBC 12.0 x10^3/uL (4.8-10.8) H 01/30/23 05:48 RBC 3.44 10^6/uL (4.20-5.40) L 01/30/23 05:48 Hgb 10.8 g/dL (12.0-16.0) L 01/30/23 05:48 Hct 33.4 % (37.0-47.0) L 01/30/23 05:48 MCV 97.1 fL (81.0-99.0) 01/30/23 05:48 MCH 31.4 pg (27.0-31.0) H 01/30/23 05:48 MCHC 32.3 g/dL (32.0-36.0) 01/30/23 05:48 RDW 13.3 % (12.0-15.0) 01/30/23 05:48 Plt Count 126 10^3/uL (130-450) L 01/30/23 05:48 MPV 11.8 fL (7.9-10.8) H 01/30/23 05:48 Neut # (Auto) 10.8 10^3/uL (1.5-6.6) H 01/30/23 05:48 Lymph # (Auto) 0.6 10^3/uL (1.5-3.5) L 01/30/23 05:48 [place] # (Auto) 0.5 10^3/uL (0.0-1.0) 01/30/23 05:48 Eos # (Auto) 0.0 10^3/uL (0.0-0.7) 01/30/23 05:48 Baso # (Auto) 0.0 10^3/uL (0.0-0.1) 01/30/23 05:48 Absolute Nucleated RBC 0.00 x10^3/uL 01/30/23 05:48 Nucleated RBC % 0.0 /100WBC 01/30/23 05:48 PT 11.9 secs (9.9-12.6) 01/27/23 20:11 INR 1.1 (0.8-1.2) 01/27/23 20:11 Sodium 136 mmol/L (135-145) 01/30/23 05:48 Potassium 3.3 mmol/L (3.5-4.5) L 01/30/23 05:48 Chloride 108 mmol/L (101-111) 01/30/23 05:48 Carbon Dioxide 22 mmol/L (21-32) 01/30/23 05:48 Anion Gap 6.0 (6-13) 01/30/23 05:48 BUN 13 mg/dL (6-20) 01/30/23 05:48 Creatinine 0.5 mg/dL (0.6-1.3) L 01/30/23 05:48 Estimated GFR (MDRD) 120 (>89) 01/30/23 05:48 Glucose 85 mg/dL (74-104) 01/30/23 05:48 Lactic Acid 1.9 mmol/L (0.5-2.2) 01/27/23 20:11 Calcium 8.6 mg/dL (8.5-10.3) 01/30/23 05:48 Magnesium 1.9 mg/dL (1.7-2.3) 01/27/23 20:11 Total Bilirubin 0.6 mg/dL (0.2-1.0) 01/30/23 05:48 AST 28 IU/L (10-42) 01/30/23 05:48 ALT 13 IU/L (10-60) 01/30/23 05:48 Alkaline Phosphatase 57 IU/L (42-121) 01/30/23 05:48 Total Protein 5.2 g/dL (6.4-8.9) L 01/30/23 05:48 Albumin 2.9 g/dL (3.2-5.5) L 01/30/23 05:48 Globulin 2.3 g/dL (2.1-4.2) 01/30/23 05:48 Albumin/Globulin Ratio 1.3 (1.0-2.2) 01/30/23 05:48 Lipase 7 U/L (11-82) L 01/29/23 05:25 Urine Color YELLOW 01/27/23 20:30 Urine Clarity CLEAR (CLEAR) 01/27/23 20:30 Urine pH 6.5 PH (5.0-7.5) 01/27/23 20:30 Ur Specific [place] 1.025 (1.002-1.030) 01/27/23 20:30 Urine Protein TRACE mg/dL (NEGATIVE) 01/27/23 20:30 Urine Glucose (UA) NEGATIVE mg/dL (NEGATIVE) 01/27/23 20:30 Urine Ketones 40 mg/dL (NEGATIVE) H 01/27/23 20:30 Urine Occult Blood SMALL (NEGATIVE) H 01/27/23 20:30 Urine Nitrite NEGATIVE (NEGATIVE) 01/27/23 20:30 Urine Bilirubin NEGATIVE (NEGATIVE) 01/27/23 20:30 Urine Urobilinogen 0.2 (NORMAL) E.U./dL (NORMAL) 01/27/23 20:30 Ur Leukocyte Esterase NEGATIVE (NEGATIVE) 01/27/23 20:30 Urine RBC 11-25 /HPF (0-5) H 01/27/23 20:30 Urine WBC 4-5 /HPF (0-5) 01/27/23 20:30 Ur Squamous Epith Cells FEW Squamous (<= Few) 01/27/23 20:30 Urine Bacteria Few /HPF (None Seen) 01/27/23 20:30 Urine Mucus Few Strands 01/27/23 20:30 Ur Microscopic Review INDICATED 01/27/23 20:30 Urine Culture Comments NOT INDICATED 01/27/23 20:30 - Procedures Procedures: Procedures ENDOSC POLYPECTOMY OF LG INTEST (08/27/13) ESOPHAGOGASTRODUODENOSCOPY [EGD] W/CLOSED BIOPSY (08/27/13) ABX Reporting Has patient been on IV antibiotics over the past 48 hours?: Yes
[2023-01-30] MEDS ORDERED: FLUCONAZOLE 100 MG TABLET PO ONE (18:00)
[2023-01-30] MEDS: traMADol 50 MG TABLET PO PRN ×2 (18:52→23:12)
[2023-01-30] MEDS ORDERED: LACTULOSE 10 GM /15 ML UDC PO ONE (20:00)
[2023-01-30] MEDS ORDERED: BISACODYL 10 MG SUPP PR ONE (20:00)
--- NOTE | 2023-01-30 23:03 | CONSULTATION NOTE ---
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 - Past Surgical History General: reports: Colonoscopy HEENT: reports: Cataracts, Tonsil/Adenoidectomy Meds/Allgy - Home Medications Home Medications: Ambulatory Orders Medication Instructions Recorded Confirmed Ascorbic Acid 1,000 gm PO DAILY 08/24/13 01/28/23 Multivitamin [Multivitamins] 1 cap PO DAILY 08/24/13 01/28/23 Ashwagandha Root Extract 300 mg PO DAILY 01/28/23 01/28/23 [Ashwagandha] Bacopa Plus Cognative Support 1 each PO DAILY 01/28/23 Calcium Glucarate [Calcium 500 mg PO DAILY 01/28/23 01/28/23 D-Glucarate] Cholecalciferol (Vitamin D3) 50 mcg PO DAILY 01/28/23 01/28/23 [Vitamin D3] Glutamine [l-Glutamine] 1 tbs PO DAILY 01/28/23 01/28/23 Intra-Mag(Mag/Zinc/Potassium) 1 each PO DAILY 01/28/23 Lipogard Liver Function 1 each PO DAILY 01/28/23 QUEtiapine [SEROquel] 25 mg PO DAILY 01/28/23 01/28/23 Quercetin/Bromelain 1 each PO DAILY 01/28/23 Saccharomyces Boulardii/Yeast 1 cap PO DAILY 01/28/23 01/28/23 [Saccharomyces Boulardii-Mos Cp] Turmeric Root Extract 1 cap PO DAILY 01/28/23 01/28/23 [Curcuplex-95] - Allergies Allergies/Adverse Reactions: Allergies Allergy/AdvReac Type Severity Reaction Status Date / Time Macrolide Antibiotics AdvReac Nausea Verified 01/28/23 09:06 Exam - Vital Signs Vital Signs: Vital Signs x48h Temp Pulse Resp BP Pulse Ox 01/30/23 16:00 36.6 C 99 18 124/58 L 99 Conclusion and Plan - Lab Results Microbiology Results 01/27/23 21:07 Blood - Left Arm Blood Culture - Final Staphylococcus Asia Ssp.hominis Laboratory Results 01/30/23 05:48: Sodium 136, Potassium 3.3 L, Chloride 108, Carbon Dioxide 22, Anion Gap 6.0, BUN 13, Creatinine 0.5 L, Estimated GFR (MDRD) 120, Glucose 85, Calcium 8.6, Total Bilirubin 0.6, AST 28, ALT 13, Alkaline Phosphatase 57, Total Protein 5.2 L, Albumin 2.9 L, Globulin 2.3, Albumin/Globulin Ratio 1.3 01/30/23 05:48: WBC 12.0 H, RBC 3.44 L, Hgb 10.8 L, Hct 33.4 L, MCV 97.1, MCH 31.4 H, MCHC 32.3, RDW 13.3, Plt Count 126 L, MPV 11.8 H, Neut # (Auto) 10.8 H, Lymph # (Auto) 0.6 L, Bates # (Auto) 0.5, Eos # (Auto) 0.0, Baso # (Auto) 0.0, Absolute Nucleated RBC 0.00, Nucleated RBC % 0.0 01/29/23 05:25: Sodium 137, Potassium 3.4 L, Chloride 107, Carbon Dioxide 23, Anion Gap 7.0, BUN 12, Creatinine 0.5 L, Estimated GFR (MDRD) 120, Glucose 81, Calcium 8.5, Total Bilirubin 0.7, AST 22, ALT 11, Alkaline Phosphatase 62, Total Protein 5.4 L, Albumin 3.1 L, Globulin 2.3, Albumin/Globulin Ratio 1.3, Lipase 7 L 01/29/23 05:25: WBC 14.3 H, RBC 3.58 L, Hgb 11.3 L, Hct 35.0 L, MCV 97.8, MCH 31.6 H, MCHC 32.3, RDW 13.2, Plt Count 109 L, MPV 12.7 H, Neut # (Auto) 13.2 H, Lymph # (Auto) 0.6 L, Bates # (Auto) 0.4, Eos # (Auto) 0.0, Baso # (Auto) 0.0, Absolute Nucleated RBC 0.00, Nucleated RBC % 0.0
[2023-01-30] MEDS: QUEtiapine 25 MG TABLET PO PRN (23:12)
[2023-01-31] MEDS: ONDANSETRON 4 MG/2 ML VIAL IVP PRN (00:05)
[2023-01-31] MEDS: SODIUM CHLORIDE FLUSH 0.9% 10 ML SYRINGE IVP SCH ×3 (00:05→18:22)
[2023-01-31] MEDS: SODIUM CHLORIDE 0.9% 1,000 ML IV SCH (03:00)
[2023-01-31] MEDS: traMADol 50 MG TABLET PO PRN ×3 (03:44→19:36)
[2023-01-31] MEDS: PIPERACILLIN/TAZOBACTAM 3.375 GM in SODIUM CHLORIDE 0.9% MINIBAG 100 ML IV SCH ×3 (03:44→20:08)
[2023-01-31 06:16] LABS: BASOPHILS % (AUTO) 0.1 %; EOSINOPHILS % (AUTO) 0.1 %; HCT - HEMATOCRIT 30.5 % (37.0-47.0); HGB - HEMOGLOBIN 9.8 g/dL (12.0-16.0); LYMPHOCYTES # (AUTO) 0.5 10^3/uL (1.5-3.5); LYMPHOCYTES % (AUTO) 6.2 %; MEAN CORPUSCULAR HEMOGLOBIN 31.3 pg (27.0-31.0); MEAN CORPUSCULAR HGB CONC 32.1 g/dL (32.0-36.0); MEAN CORPUSCULAR VOLUME 97.4 fL (81.0-99.0); MEAN PLATELET VOLUME 12.2 fL (7.9-10.8); MONOCYTES # (AUTO) 0.6 10^3/uL (0.0-1.0); MONOCYTES % (AUTO) 7.6 %; NEUTROPHILS # (AUTO) 6.8 10^3/uL (1.5-6.6); NEUTROPHILS % (AUTO) 85.6 %; PLT - PLATELET COUNT 131 10^3/uL (130-450); RED BLOOD COUNT 3.13 10^6/uL (4.20-5.40); RED CELL DISTRIBUTION WIDTH 13.3 % (12.0-15.0); WHITE BLOOD COUNT 7.9 x10^3/uL (4.8-10.8)
[2023-01-31 06:30] LABS: ALBUMIN 2.7 g/dL (3.2-5.5); ALBUMIN/GLOBULIN RATIO 1.2 (1.0-2.2); BILIRUBIN,TOTAL 0.5 mg/dL (0.2-1.0); CALCIUM 8.2 mg/dL (8.5-10.3); CREATININE 0.4 mg/dL (0.6-1.3); POTASSIUM 3.2 mmol/L (3.5-4.5); TOTAL PROTEIN 4.9 g/dL (6.4-8.9)
[2023-01-31] MEDS: DOCUSATE SODIUM 250 MG CAPSULE PO SCH (09:16)
[2023-01-31] MEDS: POTASSIUM CHLORIDE 20 MEQ TABLET PO SCH ×2 (09:16→11:05)
[2023-01-31] MEDS: SENNA 8.6 MG TABLET PO SCH (09:17)
[2023-01-31] MEDS: SACCHAROMYCES BOULARDII 250 MG CAPSULE PO SCH ×2 (09:17→18:22)
[2023-01-31] MEDS: HEPARIN 5,000 UNIT/ML VIAL SUBQ SCH ×2 (09:17→21:31)
[2023-01-31] MEDS ORDERED: SIMETHICONE CHEW 80 MG TABLET PO PRN (16:54)
[2023-01-31] MEDS: LIPASE/PROTEASE/AMYLASE CAPSULE PO SCH (18:22)
--- NOTE | 2023-01-31 18:35 | PROVIDER PROGRESS NOTE ---
Assessment/Plan - Problem List (1) Abdominal pain Qualifiers: Abdominal location: lower abdomen, unspecified Qualified Code(s): R10.30 - Lower abdominal pain, unspecified Assessment/Plan: (1) Abdominal pain Qualifiers: Abdominal location: lower abdomen, unspecified Qualified Code(s): R10.30 - Lower abdominal pain, unspecified Assessment/Plan: CT imaging done at admission revealed suggestion of enteritis mesenteric fat stranding. Patient was given 1 dose of IV antibiotics and further doses were held due to concern of not being an infectious process. MRI of abdomen and pelvis was done today which revealed:possible apendicitis .General Surgery evaluated and says is enteritis so continue iv zosyn and progress diet as tolerated. (2) Enteritis Assessment/Plan: Currently not on any antibiotics as thought to be noninfectious process at this time but MRI performed today see findings this may suggest otherwise.MRI of abdomen pelvis with and without contrast revealed lower abdominal inflammatory changes present suspicious for acute appendicitis. Dilated loops of small bowel are present could be reactive to the above described inflammatory process but mechanical obstruction is difficult to exclude. Few pancreatic cysts present nonspecific potential sidebranch IPMN's. Imaging follow-up in 1 year is recommended. Other right lower quadrant inflammatory process such as enterocolitis with secondary involvement of the appendix is difficult to fully exclude. General surgery on-call was contacted and will evaluate the patient patient will be n.p.o. after midnight along with being initiated on IV Zosyn. 01/30- Await recommendations per general surgery. Per RN patient is to start clear liquid diet encourage walking.Progress diet as tolerated. Appreciate Nutrition recommendations. Added pancrealipase to regimen. (3) Leukocytosis Qualifiers: Leukocytosis type: bandemia Qualified Code(s): D72.825 - Bandemia Assessment/Plan: Initial white count was 14.9 following repeat next day 15.3 and On January 29 is 14 .3 WBC is 7.9 on 01/31. (3) Leukocytosis Qualifiers: Leukocytosis type: bandemia Qualified Code(s): D72.825 - Bandemia - Current Meds Current Meds: Current Medications Generic Name Dose Route Start Last Admin Trade Name Freq PRN Reason Stop Dose Admin Lipase/Protease/Amylase 1 cap 01/31/23 17:00 01/31/23 18:22 Lipase/Protease/Amylase Capsule PO 1 cap TIDWM JERMAINE Administration Docusate Sodium 250 - 500 mg 01/29/23 21:00 01/31/23 09:16 Docusate Sodium 250 Mg Capsule PO 250 mg DAILY JERMAINE Administration Heparin Sodium (Porcine) 5,000 unit 01/28/23 09:00 01/31/23 09:17 Heparin 5,000 Unit/Ml Vial SUBQ 5,000 unit BID JERMAINE Administration Piperacillin Sod/Tazobactam 100 mls @ 25 mls/hr 01/29/23 20:00 01/31/23 16:54 Sod 3.375 gm/ Sodium Chloride IV Infused Q8H JERMAINE Infusion Morphine Sulfate 2 mg 01/28/23 01:49 01/30/23 07:12 Morphine 2 Mg/Ml Carpuject IVP 2 mg Q2HR PRN Administration Pain 8 to 10 Ondansetron HCl 4 mg 01/28/23 01:49 01/31/23 00:05 Ondansetron 4 Mg/2 Ml Vial IVP 4 mg Q6HR PRN Administration Nausea / Vomiting Quetiapine Fumarate 25 mg 01/29/23 16:59 01/30/23 23:12 Quetiapine 25 Mg Tablet PO 02/02/23 16:58 25 mg QPM PRN Administration Insomnia Saccharomyces Boulardii 250 mg 01/29/23 17:00 01/31/23 18:22 Saccharomyces Boulardii 250 Mg Capsule PO 250 mg BIDWM JERMAINE Administration Senna 8.6 - 17.2 mg 01/31/23 09:00 01/31/23 09:17 Senna 8.6 Mg Tablet PO Not Given DAILY [facility] Simethicone 80 mg 01/31/23 16:54 01/31/23 18:26 Simethicone Chew 80 Mg Tablet PO 80 mg Q6H PRN Administration Gas Sodium Chloride 10 ml 01/28/23 01:49 01/29/23 20:50 Sodium Chloride Flush 0.9% 10 Ml Syringe IVP 10 ml PRN PRN Administration NEEDED PER PROVIDER ORDERS Sodium Chloride 10 ml 01/28/23 09:00 01/31/23 18:22 Sodium Chloride Flush 0.9% 10 Ml Syringe IVP 10 ml 0100,0900,1700 JREMAINE Administration Tramadol HCl 50 mg 01/30/23 18:12 01/31/23 15:28 Tramadol 50 Mg Tablet PO 50 mg Q4HR PRN Administration Moderate Pain (Level 4-6) - Lab Result Fish Bone Diagrams: 01/31/23 05:39 01/31/23 05:39 - Additional Planning My Orders: My Active Orders 01/30/23 18:12 traMADol [Ultram] 50 mg PO Q4HR PRN 01/31/23 Lunch Soft (Low Fiber) Diet [DIET] 01/31/23 16:54 Simethicone [Mylicon] 80 mg PO Q6H PRN 01/31/23 17:00 Lipase/Protease/Amylase [Pancrelipase Dr 5,000/17,000/24,000 Mcc] 1 cap PO TIDWM 02/01/23 05:00 CBC - COMP BLD CT W/AUTO DIFF [HEME] DAILYLAB CMP [COMPREHENSIVE METABOLIC PANEL] [CHEM] DAILYLAB 02/02/23 05:00 CBC - COMP BLD CT W/AUTO DIFF [HEME] DAILYLAB CMP [COMPREHENSIVE METABOLIC PANEL] [CHEM] DAILYLAB Subjective - Subjective Patient Reports: Feeling Better (Has been ambulating and progressed diet.) Objective Vital Signs: Vital Signs - 24 hr 01/30/23 01/30/23 01/31/23 23:49 23:56 07:40 Temperature 36.3 C L 36.0 C L 36.7 C Heart Rate [ 89 90 86 Brachial] Respiratory 20 16 16 Rate Blood Pressure 154/78 H 142/69 H 114/54 L [Right Brachial artery] O2 Saturation 98 96 90 L 01/31/23 16:00 Temperature 36.6 C Heart Rate [ 87 Brachial] Respiratory 16 Rate Blood Pressure 123/61 [Right Brachial artery] O2 Saturation 97 Oxygen O2 Source Room air I&O (Last 24 Hrs): Intake and Output Totals x24h 01/29/23 01/30/23 01/31/23 23:59 23:59 23:59 Intake Total 2790 3430.000 3469.333 Output Total 300 200 Balance 2790 3130.000 3269.333 General: Alert, Oriented x3 Neck: Supple Neuro: Alert, Non Focal Abdomen: Other (tender lower abd) Skin: No rashes - Results Results: Laboratory Results WBC 7.9 x10^3/uL (4.8-10.8) 01/31/23 05:39 RBC 3.13 10^6/uL (4.20-5.40) L 01/31/23 05:39 Hgb 9.8 g/dL (12.0-16.0) L 01/31/23 05:39 Hct 30.5 % (37.0-47.0) L 01/31/23 05:39 MCV 97.4 fL (81.0-99.0) 01/31/23 05:39 MCH 31.3 pg (27.0-31.0) H 01/31/23 05:39 MCHC 32.1 g/dL (32.0-36.0) 01/31/23 05:39 RDW 13.3 % (12.0-15.0) 01/31/23 05:39 Plt Count 131 10^3/uL (130-450) 01/31/23 05:39 MPV 12.2 fL (7.9-10.8) H 01/31/23 05:39 Neut # (Auto) 6.8 10^3/uL (1.5-6.6) H 01/31/23 05:39 Lymph # (Auto) 0.5 10^3/uL (1.5-3.5) L 01/31/23 05:39 [place] # (Auto) 0.6 10^3/uL (0.0-1.0) 01/31/23 05:39 Eos # (Auto) 0.0 10^3/uL (0.0-0.7) 01/31/23 05:39 Baso # (Auto) 0.0 10^3/uL (0.0-0.1) 01/31/23 05:39 Absolute Nucleated RBC 0.00 x10^3/uL 01/31/23 05:39 Nucleated RBC % 0.0 /100WBC 01/31/23 05:39 PT 11.9 secs (9.9-12.6) 01/27/23 20:11 INR 1.1 (0.8-1.2) 01/27/23 20:11 Sodium 139 mmol/L (135-145) 01/31/23 05:39 Potassium 3.2 mmol/L (3.5-4.5) L 01/31/23 05:39 Chloride 110 mmol/L (101-111) 01/31/23 05:39 Carbon Dioxide 23 mmol/L (21-32) 01/31/23 05:39 Anion Gap 6.0 (6-13) 01/31/23 05:39 BUN 15 mg/dL (6-20) 01/31/23 05:39 Creatinine 0.4 mg/dL (0.6-1.3) L 01/31/23 05:39 Estimated GFR (MDRD) 155 (>89) 01/31/23 05:39 Glucose 102 mg/dL (74-104) 01/31/23 05:39 Lactic Acid 1.9 mmol/L (0.5-2.2) 01/27/23 20:11 Calcium 8.2 mg/dL (8.5-10.3) L 01/31/23 05:39 Magnesium 1.9 mg/dL (1.7-2.3) 01/27/23 20:11 Total Bilirubin 0.5 mg/dL (0.2-1.0) 01/31/23 05:39 AST 34 IU/L (10-42) 01/31/23 05:39 ALT 16 IU/L (10-60) 01/31/23 05:39 Alkaline Phosphatase 48 IU/L (42-121) 01/31/23 05:39 Total Protein 4.9 g/dL (6.4-8.9) L 01/31/23 05:39 Albumin 2.7 g/dL (3.2-5.5) L 01/31/23 05:39 Globulin 2.2 g/dL (2.1-4.2) 01/31/23 05:39 Albumin/Globulin Ratio 1.2 (1.0-2.2) 01/31/23 05:39 Lipase 7 U/L (11-82) L 01/29/23 05:25 Urine Color YELLOW 01/27/23 20:30 Urine Clarity CLEAR (CLEAR) 01/27/23 20:30 Urine pH 6.5 PH (5.0-7.5) 01/27/23 20:30 Ur Specific [place] 1.025 (1.002-1.030) 01/27/23 20:30 Urine Protein TRACE mg/dL (NEGATIVE) 01/27/23 20:30 Urine Glucose (UA) NEGATIVE mg/dL (NEGATIVE) 01/27/23 20:30 Urine Ketones 40 mg/dL (NEGATIVE) H 01/27/23 20:30 Urine Occult Blood SMALL (NEGATIVE) H 01/27/23 20:30 Urine Nitrite NEGATIVE (NEGATIVE) 01/27/23 20:30 Urine Bilirubin NEGATIVE (NEGATIVE) 01/27/23 20:30 Urine Urobilinogen 0.2 (NORMAL) E.U./dL (NORMAL) 01/27/23 20:30 Ur Leukocyte Esterase NEGATIVE (NEGATIVE) 01/27/23 20:30 Urine RBC 11-25 /HPF (0-5) H 01/27/23 20:30 Urine WBC 4-5 /HPF (0-5) 01/27/23 20:30 Ur Squamous Epith Cells FEW Squamous (<= Few) 01/27/23 20:30 Urine Bacteria Few /HPF (None Seen) 01/27/23 20:30 Urine Mucus Few Strands 01/27/23 20:30 Ur Microscopic Review INDICATED 01/27/23 20:30 Urine Culture Comments NOT INDICATED 01/27/23 20:30 - Procedures Procedures: Procedures ENDOSC POLYPECTOMY OF LG INTEST (08/27/13) ESOPHAGOGASTRODUODENOSCOPY [EGD] W/CLOSED BIOPSY (08/27/13) ABX Reporting Has patient been on IV antibiotics over the past 48 hours?: Yes
[2023-01-31] MEDS: SODIUM CHLORIDE FLUSH 0.9% 10 ML SYRINGE IVP PRN (20:08)
[2023-01-31] MEDS: QUEtiapine 25 MG TABLET PO PRN (22:26)
[2023-02-01] MEDS: traMADol 50 MG TABLET PO PRN ×2 (00:37→05:08)
[2023-02-01] MEDS: SODIUM CHLORIDE FLUSH 0.9% 10 ML SYRINGE IVP SCH ×3 (00:43→16:25)
[2023-02-01] MEDS: PIPERACILLIN/TAZOBACTAM 3.375 GM in SODIUM CHLORIDE 0.9% MINIBAG 100 ML IV SCH ×3 (04:36→16:24)
[2023-02-01 05:45] LABS: BASOPHILS % (AUTO) 0.3 %; EOSINOPHILS # (AUTO) 0.1 10^3/uL (0.0-0.7); EOSINOPHILS % (AUTO) 0.8 %; HCT - HEMATOCRIT 30.5 % (37.0-47.0); HGB - HEMOGLOBIN 9.8 g/dL (12.0-16.0); LYMPHOCYTES # (AUTO) 0.7 10^3/uL (1.5-3.5); LYMPHOCYTES % (AUTO) 10.7 %; MEAN CORPUSCULAR HEMOGLOBIN 30.7 pg (27.0-31.0); MEAN CORPUSCULAR HGB CONC 32.1 g/dL (32.0-36.0); MEAN CORPUSCULAR VOLUME 95.6 fL (81.0-99.0); MEAN PLATELET VOLUME 11.4 fL (7.9-10.8); MONOCYTES # (AUTO) 0.6 10^3/uL (0.0-1.0); MONOCYTES % (AUTO) 9.7 %; NEUTROPHILS % (AUTO) 77.7 %; PLT - PLATELET COUNT 142 10^3/uL (130-450); RED BLOOD COUNT 3.19 10^6/uL (4.20-5.40); RED CELL DISTRIBUTION WIDTH 13.2 % (12.0-15.0); WHITE BLOOD COUNT 6.4 x10^3/uL (4.8-10.8)
[2023-02-01 05:55] LABS: ALBUMIN 2.9 g/dL (3.2-5.5); ALBUMIN/GLOBULIN RATIO 1.2 (1.0-2.2); BILIRUBIN,TOTAL 0.5 mg/dL (0.2-1.0); CALCIUM 8.3 mg/dL (8.5-10.3); CREATININE 0.4 mg/dL (0.6-1.3); POTASSIUM 3.4 mmol/L (3.5-4.5); TOTAL PROTEIN 5.4 g/dL (6.4-8.9)
[2023-02-01] MEDS: DOCUSATE SODIUM 250 MG CAPSULE PO SCH (08:43)
[2023-02-01] MEDS: SACCHAROMYCES BOULARDII 250 MG CAPSULE PO SCH ×2 (08:43→18:30)
[2023-02-01] MEDS: SENNA 8.6 MG TABLET PO SCH (08:43)
[2023-02-01] MEDS: LIPASE/PROTEASE/AMYLASE CAPSULE PO SCH ×4 (08:43→18:30)
[2023-02-01] MEDS: POTASSIUM CHLORIDE 10 MEQ CAPSULE PO SCH ×4 (08:43→20:48)
[2023-02-01] MEDS: HEPARIN 5,000 UNIT/ML VIAL SUBQ SCH ×2 (08:54→20:52)
--- NOTE | 2023-02-01 16:16 | PROVIDER PROGRESS NOTE ---
Subjective - Prog Note Date Prog Note Date: 02/01/23 Prog Note Time: 16:14 - Subjective Pt reports feeling: Improved Subjective: The patient shares with me that she has had lifelong bowel problems. Decades. She has had colonoscopies in appropriate times. She is not sure if she has had biopsies. Her complaints consist of bloating, abdominal aching, occasionally diarrhea. She sees a advertising sales manager and she is on a leaky diet and Marina overgrowth plan. Mainly that is low starchy vegetables, and protein. She does feel that this episode of abdominal pain, bloating is the worst she is ever had. Yesterday she had a very good morning. Then she took the simethicone for bloating and gas and felt like she was miserable with nausea and pain last night. She did tolerate a regular diet yesterday at lunch and at dinner but will sales was forcing herself to eat. This morning she feels good. Pain is controlled. She has not gotten up to go to the bathroom yet. She finds that every time she gets up to move around, the pain starts coming back. It is constant, unremitting. It then gets associated with nausea and then misery. Again she feels like is the pain she has always had for the all of her life, just worse than usual Current Medications - Current Medications Current Medications: Active Medications Lipase/Protease/Amylase (Lipase/Protease/Amylase Capsule) 1 cap PO TIDWM [facility] Last Admin: 02/01/23 11:58 Dose: 1 cap Docusate Sodium (Docusate Sodium 250 Mg Capsule) 250 - 500 mg PO DAILY [facility] Last Admin: 02/01/23 08:43 Dose: 250 mg Heparin Sodium (Porcine) (Heparin 5,000 Unit/Ml Vial) 5,000 unit SUBQ BID [facility] Last Admin: 02/01/23 08:54 Dose: Not Given Piperacillin Sod/Tazobactam (Sod 3.375 gm/ Sodium Chloride) 100 mls @ 25 mls/hr IV Q8H [facility] Morphine Sulfate (Morphine 2 Mg/Ml Carpuject) 2 mg IVP Q2HR PRN PRN Reason: Pain 8 to 10 Last Admin: 01/30/23 07:12 Dose: 2 mg Ondansetron HCl (Ondansetron 4 Mg/2 Ml Vial) 4 mg IVP Q6HR PRN PRN Reason: Nausea / Vomiting Last Admin: 01/31/23 00:05 Dose: 4 mg Potassium Chloride (Potassium Chloride 10 Meq Capsule) 20 meq PO Q4H [facility] Stop: 02/01/23 20:01 Last Admin: 02/01/23 13:39 Dose: 20 meq Quetiapine Fumarate (Quetiapine 25 Mg Tablet) 25 mg PO QPM PRN PRN Reason: Insomnia Stop: 02/02/23 16:58 Last Admin: 01/31/23 22:26 Dose: 25 mg Saccharomyces Boulardii (Saccharomyces Boulardii 250 Mg Capsule) 250 mg PO BIDWM [facility] Last Admin: 02/01/23 08:43 Dose: 250 mg Senna (Senna 8.6 Mg Tablet) 8.6 - 17.2 mg PO DAILY [facility] Last Admin: 02/01/23 08:43 Dose: 8.6 mg Simethicone (Simethicone Chew 80 Mg Tablet) 80 mg PO Q6H PRN PRN Reason: Gas Last Admin: 01/31/23 18:26 Dose: 80 mg Sodium Chloride (Sodium Chloride Flush 0.9% 10 Ml Syringe) 10 ml IVP PRN PRN PRN Reason: NEEDED PER PROVIDER ORDERS Last Admin: 01/31/23 20:08 Dose: 10 ml Sodium Chloride (Sodium Chloride Flush 0.9% 10 Ml Syringe) 10 ml IVP 0100,0900,1700 [facility] Last Admin: 02/01/23 04:38 Dose: 10 ml Tramadol HCl (Tramadol 50 Mg Tablet) 50 mg PO Q4HR PRN PRN Reason: Moderate Pain (Level 4-6) Last Admin: 02/01/23 05:08 Dose: 50 mg Ascorbic Acid 1,000 gm PO DAILY 08/24/13 Multivitamin [Multivitamins] 1 cap PO DAILY 08/24/13 Ashwagandha Root Extract [Ashwagandha] 300 mg PO DAILY 01/28/23 Bacopa Plus Cognative Support 1 each PO DAILY 01/28/23 Calcium Glucarate [Calcium D-Glucarate] 500 mg PO DAILY 01/28/23 Cholecalciferol (Vitamin D3) [Vitamin D3] 50 mcg PO DAILY 01/28/23 Glutamine [l-Glutamine] 1 tbs PO DAILY 01/28/23 Intra-Mag(Mag/Zinc/Potassium) 1 each PO DAILY 01/28/23 Lipogard Liver Function 1 each PO DAILY 01/28/23 QUEtiapine [SEROquel] 25 mg PO DAILY 01/28/23 Quercetin/Bromelain 1 each PO DAILY 01/28/23 Saccharomyces Boulardii/Yeast [Saccharomyces Boulardii-Mos Cp] 1 cap PO DAILY 01/28/23 Turmeric Root Extract [Curcuplex-95] 1 cap PO DAILY 01/28/23 Objective - Vital Signs/Intake & Output Reviewed Vital Signs: Yes Vital Signs: Vital Signs x48h Temp Pulse Resp BP Pulse Ox 02/01/23 08:50 36.8 C 86 16 129/54 L 92 Intake & Output: Intake & Output 01/29/23 01/30/23 01/31/23 02/01/23 23:59 23:59 23:59 23:59 Intake Total 2790 3430.000 4159.333 440.417 Output Total 300 200 Balance 2790 3130.000 3959.333 440.417 - Objective General Appearance: positive: No acute distress, Alert, Other (Pleasant, calm, lucid historian. Elderly female, well groomed, well coiffed. Comfortable.) Eyes Bilateral: positive: PERRL, EOMI ENT: positive: No signs of dehydration Neck: positive: No JVD. negative: Stiff neck Respiratory: positive: No respiratory distress. negative: Wheezes, Rales, Rhonchi Cardiovascular: positive: Regular rate & rhythm Abdomen: positive: Tenderness, Other (Hypoactive bowel sounds, slightly distended abdomen is tympanitic, generalized tenderness over the lower quadrants. Both sides. No rebound or guarding) Skin: positive: Warm, Dry Extremities: positive: Non-tender, Full ROM, Nml appearance Neurologic/Psychiatric: positive: Oriented x3, CN's nml (2-12), Motor nml - Lab Results Fish Bones: 02/01/23 05:21 02/01/23 05:21 Other Labs: Lab Results x24hrs 02/01/23 02/01/23 Range/Units 05:21 05:21 WBC 6.4 (4.8-10.8) x10^3/uL RBC 3.19 L (4.20-5.40) 10^6/uL Hgb 9.8 L (12.0-16.0) g/dL Hct 30.5 L (37.0-47.0) % MCV 95.6 (81.0-99.0) fL MCH 30.7 (27.0-31.0) pg MCHC 32.1 (32.0-36.0) g/dL RDW 13.2 (12.0-15.0) % Plt Count 142 (130-450) 10^3/uL MPV 11.4 H (7.9-10.8) fL Neut # (Auto) 5.0 (1.5-6.6) 10^3/uL Lymph # (Auto) 0.7 L (1.5-3.5) 10^3/uL [place] # (Auto) 0.6 (0.0-1.0) 10^3/uL Eos # (Auto) 0.1 (0.0-0.7) 10^3/uL Baso # (Auto) 0.0 (0.0-0.1) 10^3/uL Absolute Nucleated RBC 0.00 x10^3/uL Nucleated RBC % 0.0 /100WBC Sodium 136 (135-145) mmol/L Potassium 3.4 L (3.5-4.5) mmol/L Chloride 106 (101-111) mmol/L Carbon Dioxide 27 (21-32) mmol/L Anion Gap 3.0 L (6-13) BUN 15 (6-20) mg/dL Creatinine 0.4 L (0.6-1.3) mg/dL Estimated GFR (MDRD) 155 (>89) Glucose 104 (74-104) mg/dL Calcium 8.3 L (8.5-10.3) mg/dL Total Bilirubin 0.5 (0.2-1.0) mg/dL AST 33 (10-42) IU/L ALT 17 (10-60) IU/L Alkaline Phosphatase 50 (42-121) IU/L Total Protein 5.4 L (6.4-8.9) g/dL Albumin 2.9 L (3.2-5.5) g/dL Globulin 2.5 (2.1-4.2) g/dL Albumin/Globulin Ratio 1.2 (1.0-2.2) ABX Reporting Has patient been on IV antibiotics over the past 48 hours?: Yes Assessment/Plan - Problem List (1) Abdominal pain Impression: CT imaging done at admission revealed suggestion of enteritis mesenteric fat stranding. Patient was given 1 dose of IV antibiotics and further doses were held due to concern of not being an infectious process. Zosyn was then started January [address] of abdomen 01/27 and MRI of abdomen and pelvis was done 01/29. MRI which revealed:possible apendicitis . General Surgery provided a consultation and says is enteritis, the "appendix is an innocent bystander" per the patient, so continue iv zosyn and progress diet as tolerated. White cell count was 14.9 on the . It was 14.3 on the . Once antibiotics were started her white cell count came down to normal by January 31 at 7.9. Today she is 6.4. I interpret this as an infection that has responded to antibiotics. Today would complete 3 days of antibiotics. Plan for 7 days of antibiotics. (2) Enteritis Assessment/Plan: Initially, not on any antibiotics as thought to be noninfectious process at the time, but MRI abdomen/pelvis performed 01/29 showed findings that suggested otherwise. The MRI revealed lower abdominal inflammatory changes present suspicious for acute appendicitis. Dilated loops of small bowel are present could be reactive to the above described inflammatory process but mechanical obstruction is difficult to exclude. Few pancreatic cysts present nonspecific potential sidebranch IPMN's. Imaging follow-up in 1 year is recommended. Other right lower quadrant inflammatory process such as enterocolitis with secondary involvement of the appendix was difficult to fully exclude. General surgery on- call was contacted. He does not feel appendicitis is a problem. Her diet has been advanced from clear liquid to a soft low fiber diet on the . She is tolerating that but she had a increase in nausea and pain when she was also given her Pancrease and her simethicone. The patient attributes the increase in pain to the simethicone. She did have positive blood cultures but these are staph hominis. I think these are contaminant. Plan: Continue current soft diet. Patient is refusing simethicone. But I also would like her to follow-up with a heel scorer. If this disease has been going on for "decades", "all of her life", then I would like her to get a second evaluation with a tertiary care [facility]. She says that all the differential diagnoses that she has been evaluated for include inflammatory bowel disease, bowel overgrowth syndrome, collagenous colitis, and they have all been negative. The only time she is gotten any relief is being on the special diets through her advertising sales manager. (3) Leukocytosis resolved. Qualifiers: Leukocytosis type: bandemia Qualified Code(s): D72.825 - Bandemia Assessment/Plan: Initial white count was 14.9 following repeat next day 15.3 and On January 29 is 14.3 WBC is 7.9 on 01/31. (4) Staphlococcus bacteremia Blood culture #2, both sets, had gram-positive cocci in clusters. Not positive in the other 2 bottles. That is not positive in blood culture #1. The blood cultures were obtained on January 27 at 9:10 PM. They became positive on January 30 at 8:06 AM. As such I attribute this is contamination
[2023-02-02] MEDS: PIPERACILLIN/TAZOBACTAM 3.375 GM in SODIUM CHLORIDE 0.9% MINIBAG 100 ML IV SCH ×3 (00:03→16:00)
[2023-02-02] MEDS: SODIUM CHLORIDE FLUSH 0.9% 10 ML SYRINGE IVP SCH ×3 (00:04→16:01)
[2023-02-02 05:35] LABS: BASOPHILS % (AUTO) 0.2 %; EOSINOPHILS # (AUTO) 0.1 10^3/uL (0.0-0.7); EOSINOPHILS % (AUTO) 0.6 %; HCT - HEMATOCRIT 33.8 % (37.0-47.0); HGB - HEMOGLOBIN 10.9 g/dL (12.0-16.0); LYMPHOCYTES # (AUTO) 1.2 10^3/uL (1.5-3.5); LYMPHOCYTES % (AUTO) 14.3 %; MEAN CORPUSCULAR HEMOGLOBIN 30.7 pg (27.0-31.0); MEAN CORPUSCULAR HGB CONC 32.2 g/dL (32.0-36.0); MEAN CORPUSCULAR VOLUME 95.2 fL (81.0-99.0); MEAN PLATELET VOLUME 10.6 fL (7.9-10.8); MONOCYTES # (AUTO) 0.9 10^3/uL (0.0-1.0); MONOCYTES % (AUTO) 10.9 %; NEUTROPHILS % (AUTO) 73.3 %; PLT - PLATELET COUNT 201 10^3/uL (130-450); RED BLOOD COUNT 3.55 10^6/uL (4.20-5.40); WHITE BLOOD COUNT 8.2 x10^3/uL (4.8-10.8)
[2023-02-02 05:48] LABS: ALBUMIN/GLOBULIN RATIO 1.1 (1.0-2.2); BILIRUBIN,TOTAL 0.5 mg/dL (0.2-1.0); CALCIUM 8.9 mg/dL (8.5-10.3); CREATININE 0.4 mg/dL (0.6-1.3); POTASSIUM 3.8 mmol/L (3.5-4.5); TOTAL PROTEIN 5.8 g/dL (6.4-8.9)
[2023-02-02] MEDS: LIPASE/PROTEASE/AMYLASE CAPSULE PO SCH ×3 (08:29→17:47)
[2023-02-02] MEDS: DOCUSATE SODIUM 250 MG CAPSULE PO SCH (08:29)
[2023-02-02] MEDS: SACCHAROMYCES BOULARDII 250 MG CAPSULE PO SCH ×2 (08:29→16:04)
[2023-02-02] MEDS: SENNA 8.6 MG TABLET PO SCH (08:30)
[2023-02-02] MEDS: HEPARIN 5,000 UNIT/ML VIAL SUBQ SCH ×2 (08:30→20:23)
[2023-02-02] MEDS: traMADol 50 MG TABLET PO PRN (14:59)
--- NOTE | 2023-02-02 18:24 | PROVIDER PROGRESS NOTE ---
Progress Note February 02, 2023 6:20 PM Saw the patient this morning and this afternoon. Pain is at about a 2.5/10 when she walks or moves. When asked if she is improved since admission and she states that the pain is less. But it still there. In the sense of constantly feeling like she has to defecate or there is rectal fullness has not gone away. She is asking to stop her senna and her Lovenox. She does not feel she needs them. She is asking to resume all of her home supplements with regards to her control inspector. There is no chest pain, cough, shortness of breath. It is her GI tract that has a positive review of systems. Abdominal bloating, nausea, diffuse lower abdominal pain, sense of rectal fullness. Pain will vary between a 2 over a 10 and go as high as an 8/10 when she has to move. Active Medications Lipase/Protease/Amylase (Lipase/Protease/Amylase Capsule) 1 cap PO TIDWM [facility] Last Admin: 02/02/23 17:47 Dose: 1 cap Ascorbic Acid (Ascorbic Acid 500 Mg Tablet) 1,000 mg PO DAILY [facility] Cholecalciferol (Cholecalciferol 25 Mcg Tablet) 50 mcg PO DAILY [facility] Docusate Sodium (Docusate Sodium 250 Mg Capsule) 250 - 500 mg PO DAILY [facility] Last Admin: 02/02/23 08:29 Dose: 250 mg Heparin Sodium (Porcine) (Heparin 5,000 Unit/Ml Vial) 5,000 unit SUBQ BID [facility] Last Admin: 02/02/23 08:30 Dose: Not Given Piperacillin Sod/Tazobactam (Sod 3.375 gm/ Sodium Chloride) 100 mls @ 25 mls/hr IV Q8H [facility] Last Admin: 02/02/23 16:00 Dose: 25 mls/hr Morphine Sulfate (Morphine 2 Mg/Ml Carpuject) 2 mg IVP Q2HR PRN PRN Reason: Pain 8 to 10 Last Admin: 01/30/23 07:12 Dose: 2 mg Ondansetron HCl (Ondansetron 4 Mg/2 Ml Vial) 4 mg IVP Q6HR PRN PRN Reason: Nausea / Vomiting Last Admin: 01/31/23 00:05 Dose: 4 mg Psyllium Hydrophilic Mucilloid (Psyllium Packet) 1 packet PO DAILY [facility] Saccharomyces Boulardii (Saccharomyces Boulardii 250 Mg Capsule) 250 mg PO BIDWM [facility] Last Admin: 02/02/23 16:04 Dose: 250 mg Senna (Senna 8.6 Mg Tablet) 8.6 - 17.2 mg PO DAILY [facility] Last Admin: 02/02/23 08:30 Dose: Not Given Simethicone (Simethicone Chew 80 Mg Tablet) 80 mg PO Q6H PRN PRN Reason: Gas Last Admin: 01/31/23 18:26 Dose: 80 mg Sodium Chloride (Sodium Chloride Flush 0.9% 10 Ml Syringe) 10 ml IVP PRN PRN PRN Reason: NEEDED PER PROVIDER ORDERS Last Admin: 01/31/23 20:08 Dose: 10 ml Sodium Chloride (Sodium Chloride Flush 0.9% 10 Ml Syringe) 10 ml IVP 0100,0900,1700 [facility] Last Admin: 02/02/23 16:01 Dose: 10 ml Tramadol HCl (Tramadol 50 Mg Tablet) 50 mg PO Q4HR PRN PRN Reason: Moderate Pain (Level 4-6) Last Admin: 02/02/23 14:59 Dose: 50 mg Ascorbic Acid 1,000 gm PO DAILY 08/24/13 Multivitamin [Multivitamins] 1 cap PO DAILY 08/24/13 Ashwagandha Root Extract [Ashwagandha] 300 mg PO DAILY 01/28/23 Bacopa Plus Cognative Support 1 each PO DAILY 01/28/23 Calcium Glucarate [Calcium D-Glucarate] 500 mg PO DAILY 01/28/23 Cholecalciferol (Vitamin D3) [Vitamin D3] 50 mcg PO DAILY 01/28/23 Glutamine [l-Glutamine] 1 tbs PO DAILY 01/28/23 Intra-Mag(Mag/Zinc/Potassium) 1 each PO DAILY 01/28/23 Lipogard Liver Function 1 each PO DAILY 01/28/23 QUEtiapine [SEROquel] 25 mg PO DAILY 01/28/23 Quercetin/Bromelain 1 each PO DAILY 01/28/23 Saccharomyces Boulardii/Yeast [Saccharomyces Boulardii-Mos Cp] 1 cap PO DAILY 01/28/23 Turmeric Root Extract [Curcuplex-95] 1 cap PO DAILY 01/28/23 Collagen,Bovine [Collanex] 1 tsp PO DAILY 02/02/23 Psyllium Husk [Konsyl] 1 packet PO DAILY 02/02/23 Exam: Temperature is 36.7. Heart rate 88. Blood pressure 133/68. Respirations 16. 94% on room air An alert oriented white female, sitting upright in a chair when I saw her this morning and this afternoon. She is slowly ambulating in the room and holds onto her abdomen when she does so. Neck is supple Lungs are clear to auscultation and percussion Regular rate and rhythm Hypoactive bowel sounds and a slightly distended abdomen, tenderness but no rebound or guarding in the lower quadrants, hypoactive bowel sounds. Extremities are without edema Alert and oriented to person place and time, no focal deficits. No ataxia. Lab: CMP is normal except for total protein of 5.8. That has been improving since his vargas of 4.9 on January 31. Albumin is 3.0. That is also improving from the vargas of 2.7 on January 31. White cell count remains normal since January 31. She is 8.2 today. Hemoglobin slightly better than yesterday. Today is 10.9. Yesterday 9.8. She was admitted at 12.1. Platelets were 110 on admission and have been gradually coming up. She is 201 today. Blood culture from January 27 in 2 out of 4 bottles has staph hominis. It did not become positive until January 30. 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 Patient was given 1 dose of IV antibiotics and further doses were held due to concern of not being an infectious process. Zosyn was then started January [address] of abdomen 01/27 and MRI of abdomen and pelvis was done 01/29. MRI which revealed:possible apendicitis . General Surgery provided a consultation and says is enteritis, the "appendix is an innocent bystander" per the patient, so continue iv zosyn and progress diet as tolerated. White cell count was 14.9 on the . It was 14.3 on the . Once antibiotics were started her white cell count came down to normal by January 31 at 7.9. 8 she was 6.4. I interpret this as an infection that has responded to antibiotics. Today would complete 4 days of antibiotics. Plan for 7 days of antibiotics.I am hoping that she will improve over the next 3 days to then be able to go home. (2) Enteritis Assessment/Plan: Initially, not on any antibiotics as thought to be noninfectious process at the time, but MRI abdomen/pelvis performed 01/29 showed findings that suggested otherwise. The MRI revealed lower abdominal inflammatory changes present suspicious for acute appendicitis. Dilated loops of small bowel are present could be reactive to the above described inflammatory process but mechanical obstruction is difficult to exclude. Few pancreatic cysts present nonspecific potential sidebranch IPMN's. Imaging follow-up in 1 year is recommended. Other right lower quadrant inflammatory process such as enterocolitis with secondary involvement of the appendix was difficult to fully exclude. General surgery on- call was contacted. He does not feel appendicitis is a problem. Her diet has been advanced from clear liquid to a soft low fiber diet on the . She is tolerating that but she had a increase in nausea and pain when she was also gi jayla her Pancrease and her simethicone. The patient attributes the increase in pain to the simethicone. She did have positive blood cultures but these are staph hominis. I think these are contaminant. She is refusing senna and simethicone today. Plan: Continue current soft diet. I have acknowledged the refusal of the senna and simethicone. I have spoken to pharmacy and given them the list of all her nutrients. Pharmacy said they will be able to supplement her with the supplements that are in a bottle, labeled and can be identified and verified. But if they cannot be verified she will not be getting them.. But I also would like her to follow-up with a fertilizer loader. If this disease has been going on for "decades", "all of her life", then I would like her to get a second evaluation with a tertiary care [facility]. She says that all the differential diagnoses that she has been evaluated for include inflammatory bowel disease, bowel overgrowth syndrome, collagenous colitis, and they have all been negative. The only time she is gotten any relief is being on the special diets through her control inspector. (3) Leukocytosis resolved. Qualifiers: Leukocytosis type: bandemia Qualified Code(s): D72.825 - Bandemia Assessment/Plan: Initial white count was 14.9 following repeat next day 15.3 and On January 29 is 14.3 WBC is 7.9 on 01/31.Today continues to be normal at 8.2. (4) Blood culture contamination with Staphylococcus Blood culture #2, both sets, had gram-positive cocci in clusters. Not positive in the other 2 bottles. That is not positive in blood culture #1. The blood cultures were obtained on January 27 at 9:10 PM. They became positive on January 30 at 8:06 AM. As such I attribute this is contamination
[2023-02-03] MEDS: SODIUM CHLORIDE FLUSH 0.9% 10 ML SYRINGE IVP SCH ×3 (00:01→16:11)
[2023-02-03] MEDS: PIPERACILLIN/TAZOBACTAM 3.375 GM in SODIUM CHLORIDE 0.9% MINIBAG 100 ML IV SCH ×4 (00:01→23:48)
[2023-02-03] MEDS: traMADol 50 MG TABLET PO PRN ×5 (00:12→23:47)
[2023-02-03] MEDS: QUEtiapine 25 MG TABLET PO PRN ×2 (00:12→23:47)
[2023-02-03] MEDS: CHOLECALCIFEROL 25 MCG TABLET PO SCH (08:37)
[2023-02-03] MEDS: LIPASE/PROTEASE/AMYLASE CAPSULE PO SCH ×5 (08:37→20:20)
[2023-02-03] MEDS: DOCUSATE SODIUM 250 MG CAPSULE PO SCH (08:37)
[2023-02-03] MEDS: SACCHAROMYCES BOULARDII 250 MG CAPSULE PO SCH ×2 (08:38→18:07)
[2023-02-03] MEDS: PSYLLIUM PACKET PO SCH (08:38)
[2023-02-03] MEDS: ASCORBIC ACID 500 MG TABLET PO SCH (08:38)
[2023-02-03] MEDS: SENNA 8.6 MG TABLET PO SCH (08:38)
[2023-02-03] MEDS: HEPARIN 5,000 UNIT/ML VIAL SUBQ SCH ×2 (08:38→20:21)
--- NOTE | 2023-02-03 15:25 | PROVIDER PROGRESS NOTE ---
Progress Note February 03, 2023 3:24 PM She is still incredibly uncomfortable. She is making an effort to get out of bed. She is actually been walking the hallways to make sure she decreases her risk of DVT and atelectasis. But she walks the hallways holding onto her very distended belly much like a woman would hold onto her 9-month . She says walking in the hallways as she makes the pain slightly worse but she is walking through it because she just wants to get out of here. She started to feel dizzy and hearted because her abdomen pain just does not seem to want to go away and the bloating and distention are also not improving. But she is having bowel movements. She is passing gas. She denies chest pain, palpitations, shortness of breath. No leg edema or leg pain. Active Medications Lipase/Protease/Amylase (Lipase/Protease/Amylase Capsule) 1 cap PO TIDWM [facility] Last Admin: 02/03/23 13:48 Dose: 1 cap Ascorbic Acid (Ascorbic Acid 500 Mg Tablet) 1,000 mg PO DAILY [facility] Last Admin: 02/03/23 08:38 Dose: 1,000 mg Cholecalciferol (Cholecalciferol 25 Mcg Tablet) 50 mcg PO DAILY [facility] Last Admin: 02/03/23 08:37 Dose: 50 mcg Docusate Sodium (Docusate Sodium 250 Mg Capsule) 250 - 500 mg PO DAILY [facility] Last Admin: 02/03/23 08:37 Dose: 250 mg Heparin Sodium (Porcine) (Heparin 5,000 Unit/Ml Vial) 5,000 unit SUBQ BID [facility] Last Admin: 02/03/23 08:38 Dose: Not Given Piperacillin Sod/Tazobactam (Sod 3.375 gm/ Sodium Chloride) 100 mls @ 25 mls/hr IV Q8H [facility] Last Infusion: 02/03/23 12:40 Dose: Infused Morphine Sulfate (Morphine 2 Mg/Ml Carpuject) 2 mg IVP Q2HR PRN PRN Reason: Pain 8 to 10 Last Admin: 01/30/23 07:12 Dose: 2 mg Ondansetron HCl (Ondansetron 4 Mg/2 Ml Vial) 4 mg IVP Q6HR PRN PRN Reason: Nausea / Vomiting Last Admin: 01/31/23 00:05 Dose: 4 mg Psyllium Hydrophilic Mucilloid (Psyllium Packet) 1 packet PO DAILY [facility] Last Admin: 02/03/23 08:38 Dose: 1 packet Quetiapine Fumarate (Quetiapine 25 Mg Tablet) 25 mg PO QPM PRN PRN Reason: Insomnia Last Admin: 02/03/23 00:12 Dose: 25 mg Saccharomyces Boulardii (Saccharomyces Boulardii 250 Mg Capsule) 250 mg PO BIDWM [facility] Last Admin: 02/03/23 08:38 Dose: 250 mg Senna (Senna 8.6 Mg Tablet) 8.6 - 17.2 mg PO DAILY [facility] Last Admin: 02/03/23 08:38 Dose: Not Given Simethicone (Simethicone Chew 80 Mg Tablet) 80 mg PO Q6H PRN PRN Reason: Gas Last Admin: 01/31/23 18:26 Dose: 80 mg Sodium Chloride (Sodium Chloride Flush 0.9% 10 Ml Syringe) 10 ml IVP PRN PRN PRN Reason: NEEDED PER PROVIDER ORDERS Last Admin: 01/31/23 20:08 Dose: 10 ml Sodium Chloride (Sodium Chloride Flush 0.9% 10 Ml Syringe) 10 ml IVP 0100,0900,1700 [facility] Last Admin: 02/03/23 08:38 Dose: 10 ml Tramadol HCl (Tramadol 50 Mg Tablet) 50 mg PO Q4HR PRN PRN Reason: Moderate Pain (Level 4-6) Last Admin: 02/03/23 13:50 Dose: 50 mg Ascorbic Acid 1,000 gm PO DAILY 08/24/13 Multivitamin [Multivitamins] 1 cap PO DAILY 08/24/13 Ashwagandha Root Extract [Ashwagandha] 300 mg PO DAILY 01/28/23 Bacopa Plus Cognative Support 1 each PO DAILY 01/28/23 Calcium Glucarate [Calcium D-Glucarate] 500 mg PO DAILY 01/28/23 Cholecalciferol (Vitamin D3) [Vitamin D3] 50 mcg PO DAILY 01/28/23 Glutamine [l-Glutamine] 1 tbs PO DAILY 01/28/23 Intra-Mag(Mag/Zinc/Potassium) 1 each PO DAILY 01/28/23 Lipogard Liver Function 1 each PO DAILY 01/28/23 QUEtiapine [SEROquel] 25 mg PO DAILY 01/28/23 Quercetin/Bromelain 1 each PO DAILY 01/28/23 Saccharomyces Boulardii/Yeast [Saccharomyces Boulardii-Mos Cp] 1 cap PO DAILY 01/28/23 Turmeric Root Extract [Curcuplex-95] 1 cap PO DAILY 01/28/23 Collagen,Bovine [Collanex] 1 tsp PO DAILY 02/02/23 Psyllium Husk [Konsyl] 1 packet PO DAILY 02/02/23 Exam: Temperature 36.7. Heart rate 90. Blood pressure 145/69. Respirations 18. 94% on room air. As she walks in the hallway I see no evidence of respiratory distress or increased respiratory effort. But her abdomen is grossly distended even visualize that she standing up walking. Neck is supple Lungs are clear to auscultation and percussion Regular rate and rhythm without tachycardia Abdomen is distended, firm, hypoactive bowel sounds. Diffusely tender. More in the lower quadrants than the upper. No rebound or guarding. Although it aches, is not peritoneal. Extremities without edema Alert, oriented, lucid speech. No focal deficits. No ataxia. Lab: None done today. Her CBC and BMP have been stable on a daily basis. 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 Patient was given 1 dose of IV antibiotics and further doses were held due to concern of not being an infectious process. Zosyn was then started January [address] of abdomen 01/27 and MRI of abdomen and pelvis was done 01/29. MRI which revealed:possible apendicitis . General Surgery provided a consultation and says is enteritis, the "appendix is an innocent bystander" per the patient, so continue iv zosyn and progress diet as tolerated. White cell count was 14.9 on the . It was 14.3 on the . Once antibiotics were started her white cell count came down to normal by January 31 at 7.9. 02/01 she was 6.4. I interpret this as an infection that has responded to antibiotics. Today would complete 5 days of antibiotics. Plan for 7 days of antibiotics.I am hoping that she will improve over the next 3 days to then be able to go home. Her exam is really impressive with regards to the amount of distention she is carrying. She does look like she is 9 months I did call the last GI MD that did her colonscopy, Shaka Ureña MD @ [phone] who is out of the office this week. I was forwarded to another provider, Dr. Weber, who has also seen the patient. I have left my name and number for Dr. Weber to call me back. I would like to run the case by them. Also discussed her colonoscopy results. She is herself has been proactive. She is already called her primary care provider office and asked to be referred to a tertiary care spa assistant manager to start the ball rolling. (2) Enteritis Assessment/Plan: Initially, not on any antibiotics as thought to be noninfectious process at the time, but MRI abdomen/pelvis performed 01/29 showed findings that suggested otherwise. The MRI revealed lower abdominal inflammatory changes present suspicious for acute appendicitis. Dilated loops of small bowel are present could be reactive to the above described inflammatory process but mechanical obstruction is difficult to exclude. Few pancreatic cysts present nonspecific potential sidebranch IPMN's. Imaging follow-up in 1 year is recommended. Other right lower quadrant inflammatory process such as enterocolitis with secondary involvement of the appendix was difficult to fully exclude. General surgery on- call was contacted. He does not feel appendicitis is a problem. Her diet has been advanced from clear liquid to a soft low fiber diet on the . She is t olerating that but she had a increase in nausea and pain when she was also given her Pancrease and her simethicone. The patient attributes the increase in pain to the simethicone. She did have positive blood cultures but these are staph hominis. I think these are contaminant. She really wanted some of her powders and vitamins resumed. However one of the powders cannot be verified by pharmacy and they are declining to let her take that here at the hospital. But any supplement that is in a bottle and can be verified she is allowed to take. She is convinced that the powder she takes (collagen powder) is what will stabilize her bowel. Plan: Continue current soft diet. Unfortunately we are going to follow hospital policy with regards to unverified medications so no collagen powder. I have called her GI office as above. Hopefully they can call me back this afternoon (3) Leukocytosis resolved. Qualifiers: Leukocytosis type: bandemia Qualified Code(s): D72.825 - Bandemia Assessment/Plan: Initial white count was 14.9 following repeat next day 15.3 and On January 29 is 14.3 WBC is 7.9 on 01/31.Today continues to be normal at 8.2. (4) Blood culture contamination with Staphylococcus Blood culture #2, both sets, had gram-positive cocci in clusters. Not positive in the other 2 bottles. That is not positive in blood culture #1. The blood cultures were obtained on January 27 at 9:10 PM. They became positive on January 30 at 8:06 AM. As such I attribute this is contaminat .
[2023-02-03] MEDS: SODIUM CHLORIDE FLUSH 0.9% 10 ML SYRINGE IVP PRN (20:20)
[2023-02-04] MEDS: SODIUM CHLORIDE FLUSH 0.9% 10 ML SYRINGE IVP SCH ×4 (00:01→23:49)
[2023-02-04] MEDS: HEPARIN 5,000 UNIT/ML VIAL SUBQ SCH ×2 (08:08→20:59)
[2023-02-04] MEDS: LIPASE/PROTEASE/AMYLASE CAPSULE PO SCH ×4 (08:08→18:04)
[2023-02-04] MEDS: PSYLLIUM PACKET PO SCH (08:09)
[2023-02-04] MEDS: SENNA 8.6 MG TABLET PO SCH (08:09)
[2023-02-04] MEDS: DOCUSATE SODIUM 250 MG CAPSULE PO SCH (08:10)
[2023-02-04] MEDS: SACCHAROMYCES BOULARDII 250 MG CAPSULE PO SCH ×2 (08:10→16:56)
[2023-02-04] MEDS: PIPERACILLIN/TAZOBACTAM 3.375 GM in SODIUM CHLORIDE 0.9% MINIBAG 100 ML IV SCH ×3 (08:11→23:49)
[2023-02-04] MEDS: ASCORBIC ACID 500 MG TABLET PO SCH (08:11)
[2023-02-04] MEDS: CHOLECALCIFEROL 25 MCG TABLET PO SCH (08:11)
[2023-02-04] MEDS: traMADol 50 MG TABLET PO PRN (08:29)
--- NOTE | 2023-02-04 16:49 | PROVIDER PROGRESS NOTE ---
Progress Note February 04, 2023 4:45 PM Met up with her and her in the hallway. She has been diligently walking in the hallways. She walked yesterday morning, and she walked this afternoon. She feels like her distention is better but still has absolutely no appetite. Just the site of food makes her nauseated. Nutrition services and I have discussed the case at length. She really has not eaten much in the last 5 days. We are worried about low protein status impacting her ability to heal. She just finished a CT scan and the results are pending Exam: Temperature is 36.4, heart rate 90, blood pressure 125/66, respirations 16, 94% on room air. Slender alert female, no acute respiratory distress, able to walk in the hallway with her , arm and arm, without any difficulty. The staggering gait from yesterday where she was holding onto her belly is resolved. Lungs are clear Regular rate and rhythm Abdomen is still slightly distended just not as distended as yesterday. Tender diffusely but no rebound or guarding No edema where she felt like she was getting quite a bit of water weight yesterday. 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 Patient was given 1 dose of IV antibiotics and further doses were held due to concern of not being an infectious process. Zosyn was then started January [address] of abdomen 01/27 and MRI of abdomen and pelvis was done 01/29. MRI which revealed:possible apendicitis . General Surgery provided a consultation and says is enteritis, the "appendix is an innocent bystander" per the patient, so continue iv zosyn and progress diet as tolerated. White cell count was 14.9 on the . It was 14.3 on the . Once antibiotics were started her white cell count came down to normal by January 31 at 7.9. 02/01 she was 6.4. I interpret this as an infection that has responded to antibiotics. Today would complete 6 days of antibiotics. Plan for 7 days of antibiotics. I am hoping that she will improve over the next 3 days to then be able to go home. Her exam was really impressive with regards to the amount of distention she is carrying on 02/03. . She looked like she is 9 months and is less distended today. I did call, on 02/03, the last GI MD that did her colonscopy, Shaka Ureña MD @ [phone] who is out of the office this week. I was forwarded to another provider, Dr. eWber, who has also seen the patient. I left my name and number for Dr. Weber and he called me back. He shared with me that she has never spoken about her enteritis problems even though her abdominal bloating, cramping has been lifelong. He says is not in her notes. 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 He has no recommendations. But he is glad to put this information into her notes so that her GI doctor can address this at her next visit. Because of that continued pain I ordered a CT of the abdomen for this morning. She has been n.p.o. all day long awaiting the CT and she feels like being n.p.o. as she improved her pain and discomfort. As such, after long conversation with nutrition services working to try PPN on her. Give her bowel rest. I am not can take with food from her. She can certainly eat what ever she wants. She is a very picky eater and has very specific dietary request. But if any the food makes her with worse abdominal pain she does not have to eat it. I am worried about her nutritional status. With the PPN a complex set of labs will be ordered. I will follow-up on that. (2) Enteritis Assessment/Plan: Initially, not on any antibiotics as thought to be noninfectious process at the time, but MRI abdomen/pelvis performed 01/29 showed findings that suggested otherwise. The MRI revealed lower abdominal inflammatory changes present suspicious for acute appendicitis. Dilated loops of small bowel are present could be reactive to the above described inflammatory process but mechanical obstruction is difficult to exclude. Few pancreatic cysts present nonspecific potential sidebranch IPMN's. Imaging follow-up in 1 year is recommended. Other right lower quadrant inflammatory process such as enterocolitis with secondary involvement of the appendix was difficult to fully exclude. General surgery on- call was contacted. He does not feel appendicitis is a problem. Her diet has been advanced from clear liquid to a soft low fiber diet on the . She is tolerating that but she had a increase in nausea and pain when she was also given her Pancrease and her simethicone. The patient attributes the increase in pain to the simethicone. She did have positive blood cultures but these are staph hominis. I think these are contaminant. She really wanted some of her powders and vitamins resumed. However one of the powders cannot be verified by pharmacy and they are declining to let her take that here at the hospital. But any supplement that is in a bottle and can be verified she is allowed to take. She is convinced that the powder she takes (collagen powder) is what will stabilize her bowel. Plan: Changed to PPN for bowel rest. However she can have a small amount of food she wants. We will review labs associated with PPN. (3) Leukocytosis resolved. Qualifiers: Leukocytosis type: bandemia Qualified Code(s): D72.825 - Bandemia Assessment/Plan: Initial white count was 14.9 following repeat next day 15.3 and On January 29 is 14.3 WBC is 7.9 on 01/31. 8/2 continues to be normal at 8.2. (4) Blood culture contamination with Staphylococcus Blood culture #2, both sets, had gram-positive cocci in clusters. Not positive in the other 2 bottles. That is not positive in blood culture #1. The blood cultures were obtained on January 27 at 9:10 PM. They became positive on January 30 at 8:06 AM. As such I attribute this is contaminat .
[2023-02-04] MEDS: FAT EMULSION 20% 250 ML IV SCH (19:15)
[2023-02-04] MEDS: PPN (CLINIMIX E 4.25/5) 2,000 ML with MULTIVITAMIN 10 ML, TRACE ELEMENTS 1 ML IV SCH ×3 (19:15)
--- NOTE | 2023-02-04 21:22 | CT Report ---
PROCEDURE: ABDOMEN/PELVIS WO INDICATIONS: continued abd pain and enteritis TECHNIQUE: A CT scan of the abdomen and pelvis was performed without the use of intravenous contrast. Images we re recorded and evaluated at appropriate window settings. Reformats: coronal and sagittal. For radiat ion dose reduction, the following was used: automated exposure control, adjustment of mA and/or kV ac cording to patient size. COMPARISON: CT abdomen pelvis 01/27/2023, MRI abdomen 01/29/2023, MRI pelvis 01/29/2023. FINDINGS: Image quality: Excellent. Lung bases:There are small bilateral pleural effusions with associated compressive atelectasis or co nsolidation in the lower lobes. Heart: Heart is normal in size. There is a small pericardial effusion. ABDOMEN: Liver:There is a cyst in the left hepatic lobe. Gallbladder: Within normal limits without calcified gallstones. Biliary ducts: No biliary ductal dilatation. Pancreas: Unremarkable. Spleen: Normal in size. Adrenal Glands: No adrenal nodules. Kidneys and Ureters: No hydronephrosis. There is a 0.2 cm nonobstructing left renal stone. Stomach and Bowel: There is mild wall thickening of multiple small bowel loops throughout the abdome n with mild associated fat stranding. There is a probable abnormal appendix redemonstrated, measuring approximately 0.8 cm with wall thickening and minimal fat stranding. Evaluation is limited in the ab sence of intravenous contrast. Peritoneum:There is a small amount of intraperineal free fluid in the lower abdomen and pelvis. No f ree air. Ventral Wall: No hernia. Abdominal Nodes: No retroperitoneal or mesenteric adenopathy by size criteria. Vessels: Aorta and inferior vena cava are normal in size. PELVIS: Pelvic Organs: Unremarkable. Bladder: Unremarkable. Pelvic Nodes: No enlarged lymph nodes. Miscellaneous: No inguinal hernias. Bones: Visualized osseous structures demonstrate no suspicious lesions. IMPRESSION: 1. Limited evaluation in the absence of intravenous contrast redemonstrates findings again suggestive of appendicitis. 2. Mild wall thickening involving multiple small bowel loops throughout the abdomen compatible with a nonspecific enteritis. 3. Small amount of intraperineal free fluid is nonspecific but likely reactive. 4. Small bilateral pleural effusions with associated compressive atelectasis or consolidation in the lung bases. 5. Small pericardial effusion Reviewed by: Ian Chapman MD on 02/04/2023 9:20 PM PDT Approved by: Ian Chapman MD on 02/04/2023 9:20 PM PDT Station ID: [id number]
[2023-02-04] MEDS: QUEtiapine 25 MG TABLET PO PRN (23:49)
[2023-02-05 04:51] LABS: ALBUMIN/GLOBULIN RATIO 1.2 (1.0-2.2); BILIRUBIN,TOTAL 0.3 mg/dL (0.2-1.0); CALCIUM 8.7 mg/dL (8.5-10.3); CREATININE 0.4 mg/dL (0.6-1.3); PHOSPHORUS 2.9 mg/dL (3.7-7.2); POTASSIUM 3.5 mmol/L (3.5-4.5); TOTAL PROTEIN 5.6 g/dL (6.4-8.9)
[2023-02-05] MEDS: DOCUSATE SODIUM 250 MG CAPSULE PO SCH (08:14)
[2023-02-05] MEDS: SACCHAROMYCES BOULARDII 250 MG CAPSULE PO SCH ×2 (08:14→16:57)
[2023-02-05] MEDS: ASCORBIC ACID 500 MG TABLET PO SCH (08:14)
[2023-02-05] MEDS: LIPASE/PROTEASE/AMYLASE CAPSULE PO SCH ×3 (08:14→16:57)
[2023-02-05] MEDS: CHOLECALCIFEROL 25 MCG TABLET PO SCH (08:15)
[2023-02-05] MEDS: HEPARIN 5,000 UNIT/ML VIAL SUBQ SCH ×2 (08:15→20:04)
[2023-02-05] MEDS: PSYLLIUM PACKET PO SCH (08:15)
[2023-02-05] MEDS: SENNA 8.6 MG TABLET PO SCH (08:15)
[2023-02-05] MEDS: SODIUM CHLORIDE FLUSH 0.9% 10 ML SYRINGE IVP SCH ×3 (08:16→23:45)
--- NOTE | 2023-02-05 15:28 | CONSULTATION NOTE ---
Referring Provider Consult Date: 02/05/23 History of Present Illness - Admitted From Admitted From:: ed - History Obtained From Records Reviewed: yes History obtained from: pt Exam Limitations: none - History of Present Illness HPI Comment/Other: vague lower abdominal pain, loss of appetite, nausea, periods of abdominal pain for 11 days. constipation or no bm for 5 days and recently bladder urgency. no prior abdominal surgery. not improving. no emesis and currently not having significant pain. she states pain has been periumbilical to mid pelvis. denies having right lower quadrant pain History - Past Medical History Cardiovascular: reports: None Respiratory: reports: None Endocrine/Autoimmune: reports: None GI: reports: Other : reports: None, Retention, Incontinence, Frequency HEENT: reports: Other Psych: reports: None Musculoskeletal: reports: Osteoarthritis Derm: reports: None MRSA Hx?: Yes - Past Surgical History General: reports: Colonoscopy HEENT: reports: Cataracts, Tonsil/Adenoidectomy Meds/Allgy - Home Medications Home Medications: Ambulatory Orders Medication Instructions Recorded Confirmed Ascorbic Acid 1,000 gm PO DAILY 08/24/13 01/28/23 Multivitamin [Multivitamins] 1 cap PO DAILY 08/24/13 01/28/23 Ashwagandha Root Extract 300 mg PO DAILY 01/28/23 01/28/23 [Ashwagandha] Bacopa Plus Cognative Support 1 each PO DAILY 01/28/23 Calcium Glucarate [Calcium 500 mg PO DAILY 01/28/23 01/28/23 D-Glucarate] Cholecalciferol (Vitamin D3) 50 mcg PO DAILY 01/28/23 01/28/23 [Vitamin D3] Glutamine [l-Glutamine] 1 tbs PO DAILY 01/28/23 01/28/23 Intra-Mag(Mag/Zinc/Potassium) 1 each PO DAILY 01/28/23 Lipogard Liver Function 1 each PO DAILY 01/28/23 QUEtiapine [SEROquel] 25 mg PO DAILY 01/28/23 01/28/23 Quercetin/Bromelain 1 each PO DAILY 01/28/23 Saccharomyces Boulardii/Yeast 1 cap PO DAILY 01/28/23 01/28/23 [Saccharomyces Boulardii-Mos Cp] Turmeric Root Extract 1 cap PO DAILY 01/28/23 01/28/23 [Curcuplex-95] Collagen,Bovine [Collanex] 1 tsp PO DAILY 02/02/23 02/02/23 Psyllium Husk [Konsyl] 1 packet PO DAILY 02/02/23 02/02/23 - Allergies Allergies/Adverse Reactions: Allergies Allergy/AdvReac Type Severity Reaction Status Date / Time Macrolide Antibiotics AdvReac Nausea Verified 01/28/23 09:06 Review of Systems - Other Findings Other Findings: 10 pt ros as above otherwise unremarkable Exam - Physical Exam General Appearance: positive: No acute distress, Alert Eyes Bilateral: positive: PERRL, EOMI, No scleral icterus ENT: positive: No signs of dehydration Neck: positive: No JVD, Trachea midline Respiratory: positive: No respiratory distress Abdomen: positive: Other (minimal distension and lower abdominal tenderness. she denies right lower quadrant tenderness) Neurologic/Psychiatric: positive: Oriented x3 Conclusion/Plan - Problem List (1) Abdominal pain Conclusion/Plan: we discussed if she is not improving she should consider transfer to a hospital which can offer a higher level of care ie gi available vs exploratory laparotomy on [place]. we also discussed exploratory surgery might not help with symptoms but could help with diagnosis. personally I believe if she has an ex lap residential aide oncology should be available. this was not shared with her. recommend pelvic ultrasound to rule out ovarian malignancy - Lab Results Lab results reviewed: Yes Fish Bones: 02/02/23 05:21 02/05/23 04:23 - Diagnostic Imaging Results Diagnostic Imaging Results: positive: Read independently (very abnormal appearing ct scan with mesenteric stranding, likely omental stranding. thickened and matted appearing small bowel especially in the pelvis. mild ascites developing since admission. no clear appendicitis)
[2023-02-05] MEDS: PPN (CLINIMIX E 4.25/5) 2,000 ML with MULTIVITAMIN 10 ML, TRACE ELEMENTS 1 ML IV SCH ×3 (18:41)
[2023-02-05] MEDS: FAT EMULSION 20% 250 ML IV SCH (18:42)
--- NOTE | 2023-02-05 19:09 | PROVIDER PROGRESS NOTE ---
Progress Note February 05, 2023 7 PM Is been a long day for her. Last night, in the middle the night, she started having waxing and waning abdominal cramps. She would break out into a cold sweat and soaked the bed. The PPN has resulted in increased urinary frequency and urinary amount. Her appetite is kicked in and now she is eating. So she is excited about the PPN stopping now that she is eating. I did have a conversation with Dr. Benavidez. I asked him to see her in consultation. He has offered her exploratory lap at this institution if she feels like she is up for it right now. Or we can wait. She prefers to wait. He also offered her transfer to higher level of care and she says she just wants to stay here. Exam: Temperature is 36.4, heart rate 86, blood pressure 120/55, respirations 16, 97% on room air She is seen in the hallway, and in her room. She is having copious bowel movements of liquid stool. That makes her break out into a cold sweat with paleness. She looks like she is getting vasovagal with the cramps Lungs are clear Regular rate and rhythm Abdomen is much less distended and hyperactive bowel sounds now No edema Assessment/Plan - Problem List (1) Abdominal pain Impression: CT imaging done at admission revealed suggestion of enteritis mesenteric fat stranding. Patient was given 1 dose of IV antibiotics and further doses were held due to concern of not being an infectious process. Zosyn was then started January [address] of abdomen 01/27 and MRI of abdomen and pelvis was done 01/29. MRI which revealed:possible apendicitis . General Surgery provided a consultation and says is enteritis, the "appendix is an innocent bystander" per the patient, so continue iv zosyn and progress diet as tolerated. White cell count was 14.9 on the . It was 14.3 on the . Once antibiotics were started her white cell count came down to normal by January 31 at 7.9. 02/01 she was 6.4. I interpret this as an infection that has responded to antibiotics. Today would complete 6 days of antibiotics. Plan for 7 days of antibiotics. I am hoping that she will improve over the next 3 days to then be able to go home. Her exam was really impressive with regards to the amount of distention she is carrying on 8/3. . She looked like she is 9 months and is less distended today. I did call, on 02/03, the last GI MD that did her colonscopy, Shaka Ureña MD @ [phone] who is out of the office this week. I was forwarded to another provider, Dr. Weber, who has also seen the patient. I left my name and number for Dr. Weber and he called me back. He shared with me that she has never spoken about her enteritis problems even though her abdominal bloating, cramping has been lifelong. He says is not in her notes. 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 He has no recommendations. But he is glad to put this information into her notes so that her GI doctor can address this at her next visit. Because of that continued pain I ordered a CT of the abdomen for this morning. She has been n.p.o. all day long awaiting the CT and she feels like being n.p.o. as she improved her pain and discomfort. As such, after long conversation with nutrition services working to try PPN on her. Give her bowel rest. I am not can take with food from her. She can certainly eat what ever she wants. She is a very picky eater and has very specific dietary request. But if any the food makes her with worse abdominal pain she does not have to eat it. I am worried about her nutritional status. With the PPN a complex set of labs will be ordered. I will follow-up on that. (2) Enteritis Assessment/Plan: We have been treating her as enteritis and been worried about possible appendicitis. The first surgery consult stated that it was enteritis and "the appendix is an innocent bystander". Her last dose of antibiotics is tonight. That will complete 7 days. In this time she is slowly improved. But not by much. White cell count was elevated at 15.3 and has come down to 8.2. Has been normal since January 31. I have called her lettuce cutter who states that she has not mentioned chronic bowel problems to them. They are following her for a pancreatic cyst. My concern is that she is not improving as fast as I thought she would. I repeated a CT scan that shows a continued small bowel inflammation as well as appendicitis per radiology. As such I reconsulted surgery today. He is seen her and feels that she is not with appendicitis. His concern is possible carcinomatosis. He recommends a pelvic ultrasound. Nutrition services and I were concerned about the patient's lack of nutritional intake. She is a very picky eater and has firm believes with regards to naturopathic remedies. One of them is a collagen powder. With our pharmacy policy, patients do not take their own home meds unless they can be verified. Her collagen powder cannot be verified. As such we started PPN. Patient is unhappy because it is resulted in a tremendous amount of urine output. On top of that she now has diarrhea. Which is in contrast to the semiconstipated status she has had for the last 2 days. 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 difficile We will stop TPN after this bag CEA, CA125 (3) Leukocytosis resolved. Qualifiers: Leukocytosis type: bandemia Qualified Code(s): D72.825 - Bandemia Assessment/Plan: Initial white count was 14.9 following repeat next day 15.3 and On January 29 is 14.3 WBC is 7.9 on 01/31. 8/2 continues to be normal at 8.2. (4) Blood culture contamination with Staphylococcus Blood culture #2, both sets, had gram-positive cocci in clusters. Not positive in the other 2 bottles. That is not positive in blood culture #1. The blood cultures were obtained on January 27 at 9:10 PM. They became positive on January 30 at 8:06 AM. As such I attribute this is contaminat .
[2023-02-05] MEDS: QUEtiapine 25 MG TABLET PO PRN (21:25)
[2023-02-06] MEDS: SACCHAROMYCES BOULARDII 250 MG CAPSULE PO SCH ×2 (07:48→17:09)
[2023-02-06] MEDS: LIPASE/PROTEASE/AMYLASE CAPSULE PO SCH ×3 (07:48→17:09)
[2023-02-06 09:11] LABS: BASOPHILS # (AUTO) 0.1 10^3/uL (0.0-0.1); BASOPHILS % (AUTO) 0.6 %; EOSINOPHILS # (AUTO) 0.1 10^3/uL (0.0-0.7); EOSINOPHILS % (AUTO) 1.2 %; HCT - HEMATOCRIT 36.5 % (37.0-47.0); HGB - HEMOGLOBIN 11.6 g/dL (12.0-16.0); LYMPHOCYTES # (AUTO) 1.2 10^3/uL (1.5-3.5); LYMPHOCYTES % (AUTO) 14.3 %; MEAN CORPUSCULAR HEMOGLOBIN 30.7 pg (27.0-31.0); MEAN CORPUSCULAR HGB CONC 31.8 g/dL (32.0-36.0); MEAN CORPUSCULAR VOLUME 96.6 fL (81.0-99.0); MEAN PLATELET VOLUME 9.8 fL (7.9-10.8); MONOCYTES # (AUTO) 0.7 10^3/uL (0.0-1.0); MONOCYTES % (AUTO) 8.1 %; NEUTROPHILS # (AUTO) 6.4 10^3/uL (1.5-6.6); NEUTROPHILS % (AUTO) 75.1 %; PLT - PLATELET COUNT 334 10^3/uL (130-450); RED BLOOD COUNT 3.78 10^6/uL (4.20-5.40); RED CELL DISTRIBUTION WIDTH 13.2 % (12.0-15.0); WHITE BLOOD COUNT 8.5 x10^3/uL (4.8-10.8)
[2023-02-06] MEDS: PSYLLIUM PACKET PO SCH (09:18)
[2023-02-06 09:29] LABS: ALBUMIN 3.3 g/dL (3.2-5.5); ALBUMIN/GLOBULIN RATIO 1.1 (1.0-2.2); BILIRUBIN,TOTAL 0.2 mg/dL (0.2-1.0); CALCIUM 9.2 mg/dL (8.5-10.3); CREATININE 0.4 mg/dL (0.6-1.3); POTASSIUM 3.9 mmol/L (3.5-4.5); TOTAL PROTEIN 6.2 g/dL (6.4-8.9)
[2023-02-06] MEDS: ASCORBIC ACID 500 MG TABLET PO SCH (09:55)
[2023-02-06] MEDS: HEPARIN 5,000 UNIT/ML VIAL SUBQ SCH ×2 (09:55→20:18)
[2023-02-06] MEDS: CHOLECALCIFEROL 25 MCG TABLET PO SCH (09:55)
[2023-02-06] MEDS: SENNA 8.6 MG TABLET PO SCH (09:55)
[2023-02-06] MEDS: DOCUSATE SODIUM 250 MG CAPSULE PO SCH (09:55)
[2023-02-06] MEDS: SODIUM CHLORIDE FLUSH 0.9% 10 ML SYRINGE IVP SCH ×3 (09:55→23:09)
--- NOTE | 2023-02-06 11:18 | PROVIDER PROGRESS NOTE ---
Progress Note General Surgery Morning Rounds Note Hospital Day 10 Assessment: 1) Exacerbation of chronic abdominal bloating with CT evidence of small bowel wall thickening. Small bowel enteritis the most likely diagnosis. She has a brother with Crohn's disease and may benefit from a colonoscopic terminal ileal biopsy but her history of a "tortuous" colon might make this difficult to achieve. She is clinically improving and looking forward to discharge tomorrow. Plan: 1) Continue to wean from PPI and encourage PO intake 2) Out-patient consultation with her proofsheet corrector to evaluate for possible Crohn's as the reason for this episode of enteritis 3) No indication for diagnostic laparoscopy or laparotomy at this point in time S: Feeling much better; Only occasional lower abdominal cramp. Eating and passing relatively normal stools. O: VS: T 98; P 82; BP 115/52; RR 18; Abdomen is soft, non-tender, active bowel sounds Pain Level:1 Labs: WBC 8.5; H&H 11.6/36.5; K 3.9; Cr 0.4; Glu 118 Aaron Melchor MD, FACS General Surgery Service [phone]
--- NOTE | 2023-02-06 12:03 | PROVIDER PROGRESS NOTE ---
Progress Note February 06, 2023 12 PM Very comfortable this morning. Eating her food. Happy that I will be stopping her PPN because it just made her urinate too much. She then describes having a decades long urgency, frequency. She was even treated as interstitial cystitis with instillation of some type of chemical in her bladder. Not successful. Abdominal pain is better. Still present. Less diarrhea but still present. I discussed the thought process of the general surgeon yesterday. She is alarmed at the idea of looking for cancer but I told her that would just clinic complete the work-up. Active Medications Lipase/Protease/Amylase (Lipase/Protease/Amylase Capsule) 1 cap PO TIDWM [facility] Last Admin: 02/06/23 07:48 Dose: 1 cap Ascorbic Acid (Ascorbic Acid 500 Mg Tablet) 1,000 mg PO DAILY [facility] Last Admin: 02/06/23 09:55 Dose: 1,000 mg Cholecalciferol (Cholecalciferol 25 Mcg Tablet) 50 mcg PO DAILY [facility] Last Admin: 02/06/23 09:55 Dose: 50 mcg Docusate Sodium (Docusate Sodium 250 Mg Capsule) 250 - 500 mg PO DAILY [facility] Last Admin: 02/06/23 09:55 Dose: 250 mg Heparin Sodium (Porcine) (Heparin 5,000 Unit/Ml Vial) 5,000 unit SUBQ BID [facility] Last Admin: 02/06/23 09:55 Dose: Not Given Morphine Sulfate (Morphine 2 Mg/Ml Carpuject) 2 mg IVP Q2HR PRN PRN Reason: Pain 8 to 10 Last Admin: 01/30/23 07:12 Dose: 2 mg Ondansetron HCl (Ondansetron 4 Mg/2 Ml Vial) 4 mg IVP Q6HR PRN PRN Reason: Nausea / Vomiting Last Admin: 01/31/23 00:05 Dose: 4 mg Psyllium Hydrophilic Mucilloid (Psyllium Packet) 1 packet PO DAILY [facility] Last Admin: 02/05/23 08:15 Dose: 1 packet Quetiapine Fumarate (Quetiapine 25 Mg Tablet) 25 mg PO QPM PRN PRN Reason: Insomnia Last Admin: 02/05/23 21:25 Dose: 25 mg Saccharomyces Boulardii (Saccharomyces Boulardii 250 Mg Capsule) 250 mg PO BIDWM [facility] Last Admin: 02/06/23 07:48 Dose: 250 mg Senna (Senna 8.6 Mg Tablet) 8.6 - 17.2 mg PO DAILY [facility] Last Admin: 02/06/23 09:55 Dose: 8.6 mg Simethicone (Simethicone Chew 80 Mg Tablet) 80 mg PO Q6H PRN PRN Reason: Gas Last Admin: 01/31/23 18:26 Dose: 80 mg Sodium Chloride (Sodium Chloride Flush 0.9% 10 Ml Syringe) 10 ml IVP PRN PRN PRN Reason: NEEDED PER PROVIDER ORDERS Last Admin: 02/03/23 20:20 Dose: 10 ml Sodium Chloride (Sodium Chloride Flush 0.9% 10 Ml Syringe) 10 ml IVP 0100,0900,1700 [facility] Last Admin: 02/06/23 09:55 Dose: 10 ml Tramadol HCl (Tramadol 50 Mg Tablet) 50 mg PO Q4HR PRN PRN Reason: Moderate Pain (Level 4-6) Last Admin: 02/04/23 08:29 Dose: 50 mg Home Meds: Ascorbic Acid 1,000 gm PO DAILY 08/24/13 Multivitamin [Multivitamins] 1 cap PO DAILY 08/24/13 Ashwagandha Root Extract [Ashwagandha] 300 mg PO DAILY 01/28/23 Bacopa Plus Cognative Support 1 each PO DAILY 01/28/23 Calcium Glucarate [Calcium D-Glucarate] 500 mg PO DAILY 01/28/23 Cholecalciferol (Vitamin D3) [Vitamin D3] 50 mcg PO DAILY 01/28/23 Glutamine [l-Glutamine] 1 tbs PO DAILY 01/28/23 Intra-Mag(Mag/Zinc/Potassium) 1 each PO DAILY 01/28/23 Lipogard Liver Function 1 each PO DAILY 01/28/23 QUEtiapine [SEROquel] 25 mg PO DAILY 01/28/23 Quercetin/Bromelain 1 each PO DAILY 01/28/23 Saccharomyces Boulardii/Yeast [Saccharomyces Boulardii-Mos Cp] 1 cap PO DAILY 01/28/23 Turmeric Root Extract [Curcuplex-95] 1 cap PO DAILY 01/28/23 Collagen,Bovine [Collanex] 1 tsp PO DAILY 02/02/23 Psyllium Husk [Konsyl] 1 packet PO DAILY 02/02/23 Exam: Temperature 36.7, heart rate 82, blood pressure 115/52, respirations 18, 98% on room air Alert oriented female who looks younger than stated age, oriented to person, place, situation Neck is supple Lungs are clear to auscultation and percussion Regular rate and rhythm Abdomen has been decompressing over the last 2 days. Less and less distention and she does not look like a 9-month woman anymore. But still mild generalized discomfort when I palpate. No rebound or guarding. Normal bowel sounds. Extremities have no edema. I have never really felt she had much edema but she felt like she was retaining quite a bit of fluid and that improved starting yesterday Lab: CBC with a white cell count of 8.5, hemoglobin 11.6, hematocrit 36.5, platelets 334 Chemistry has a sodium of 139, potassium 3.9, anion gap 3, BUN 18, creatinine 0.4, fasting glucose 118 CA125 antigen is elevated at 316, high normal is 35 CEA is 1.8 with high normal being 2.5 Assessment/Plan - Problem List (1) Abdominal pain Impression: We have been treating her as nonspecific enteritis, particularly of a matted down small bowel with fat stranding. She was started on IV antibiotics January 29 through February 01. Repeat CAT scan and MRI continues to show inflammation and possible appendicitis so antibiotics were again resumed. Her last night of antibiotics was yesterday evening. Today she is not on any antibiotics. Her white cell count did come down with this. It was 14.9 when she started antibiotics and came down to normal by January 31. Pain really was not getting any better until yesterday when she started having diarrhea and a lot less distention. She is C. difficile negative so I started her on Lomotil. I have already spoken to her gastroenterology office and they are aware of her enteritis problems and will be following up with her. Prior to this she had not explained any of this to them. The history of decades of bloating, distention. They were seeing her for pancreatic cyst. I reordered a CT February 05 and there is really no change with the matting of the small bowel or the inflammatory changes. I reconsulted general surgery and they asked me to do a pelvic ultrasound to make sure that this patient may not have carcinomatosis, looking for ovarian cancer. I did tumor markers this morning and CEA is normal but CEA 125 is elevated. Patient is improved today to the point that I am stopping PPN. She had not been eating and she was getting behind in her nutrition. Once PPN was started, she really hated the idea of it so started forcing herself to eat. She is eating 100% of her food. So I will be stopping PPN today. I explained to her why redoing the pelvic ultrasound and she is in agreement with that. If she keeps food down, is afebrile, has a normal white cell count, and does not require oxygen I plan on discharging her tomorrow. Pelvic ultrasound is today. (2) Enteritis Assessment/Plan: As above (3) Leukocytosis resolved. Qualifiers: Leukocytosis type: bandemia Qualified Code(s): D72.825 - Bandemia Assessment/Plan: Initial white count was 14.9 following repeat next day 15.3 and On January 29 is 14.3 WBC is 7.9 on 01/31. 8/2 continues to be normal at 8.2. (4) Blood culture contamination with Staphylococcus Blood culture #2, both sets, had gram-positive cocci in clusters. Not positive in the other 2 bottles. That is not positive in blood culture #1. The blood cultures were obtained on January 27 at 9:10 PM. They became positive on January 30 at 8:06 AM. As such I attribute this is contaminat .
--- NOTE | 2023-02-06 18:47 | Discharge Plan ---
Discharge Plan Problem Reviewed?: Yes Disposition: Home, Self Care Condition: Fair Diet: Regular Activity Restrictions: Activity as Tolerated Shower Restrictions: No Driving Restrictions: No Health Concerns: You have a long history of abdominal discomfort with bloating, irregular bowel habits. You also have a long history of interstitial cystitis symptoms with bladder urgency, frequency, and pain. You describe having bladder installations to solve that problem in the remote past. Although you see gastroenterology for follow-up of a pancreatic cyst, you have not shared your bloating and abdominal discomfort with them when I spoke to them. Your lower abdominal pain and bloating increased in the days coming to the hospital with nausea. Pain was quite severe. CAT scan of the abdomen and pelvis suggested inflammation of the small bowel and the fat surrounding the small bowel was stranded and inflamed. Your appendix was also inflamed as part of this. I had 2 general surgeons see you to make sure that they did not have to take you to the operating room for appendicitis. We started you on antibiotics for infection of the bowel. It took your bowel q uite some time to start responding. When you were admitted you had an elevated white cell count indicating infection. White cell count is normal at discharge. For many days you are unable to eat food without inducing pain or nausea. You are not able to eat 100% of the food given to you. We were worried about your nutrition status and we temporarily started you on nutrition via your veins by g iving you intravenous glucose and fats in your veins. You underwent 2 CAT scans, and an MRI of your abdomen. All show inflamed small bowel, dilated small bowel, scant fluid in the pelvis. Before discharge you underwent a pelvic ultrasound to evaluate you for other causes of the small bowel being matted down. Nothing specific was found. Both of your ovaries are larger than normal. At this point in your life, your ovary should be very small and shrunken. Both are larger than they should be. But no specific findings. Your uterus is also thicker than it should be. Multiple cysts and possible polyps were in your uterus. We worry about this because some of your abdominal problems could be from Gynecologic cancer. We cannot be sure. And we also do not have the specialist that would make that diagnosis or eliminate that diagnosis. Plan of Treatment: You have completed antibiotic therapy. You are not able to eat and keep food down. We encourage you to resume your usual diet knowing that you have quite a bit of dietary restraints. Please see your solution design engineer in follow-up so that they can do an overview of all of your work-up with colonoscopies, pathology reports, antibody reports, etc. Hopefully they can come up with a unifying diagnosis of why You have chronic bowel problems. Please have your primary care [place] I want them to be able to make sure that they review your pelvic ultrasound and blood work to make sure you do not need any further work-up. Care Goals: To get back to a stable status with regards to abdominal pain, diet, and bowel habits Assessment: Patient is an alert, oriented female who is at the bedside and a strong advocate. Both remember very committed to following through on work-up and seeing her providers No Smoking: If you smoke, Please STOP! Call for help. Follow-up with: Marzena Milner ARNP [Primary Care Provider] -
[2023-02-06] MEDS: QUEtiapine 25 MG TABLET PO PRN (23:09)
[2023-02-07 06:36] LABS: ALBUMIN 3.3 g/dL (3.2-5.5); ALBUMIN/GLOBULIN RATIO 1.2 (1.0-2.2); BILIRUBIN,TOTAL 0.3 mg/dL (0.2-1.0); CALCIUM 9.1 mg/dL (8.5-10.3); CREATININE 0.5 mg/dL (0.6-1.3); PHOSPHORUS 3.3 mg/dL (3.7-7.2); POTASSIUM 3.9 mmol/L (3.5-4.5); TOTAL PROTEIN 6.1 g/dL (6.4-8.9)
[2023-02-07] MEDS: LIPASE/PROTEASE/AMYLASE CAPSULE PO SCH ×2 (08:26→12:33)
[2023-02-07] MEDS: HEPARIN 5,000 UNIT/ML VIAL SUBQ SCH (08:27)
[2023-02-07] MEDS: SACCHAROMYCES BOULARDII 250 MG CAPSULE PO SCH (08:27)
[2023-02-07] MEDS: SENNA 8.6 MG TABLET PO SCH (08:28)
[2023-02-07] MEDS: PSYLLIUM PACKET PO SCH (08:28)
[2023-02-07] MEDS: DOCUSATE SODIUM 250 MG CAPSULE PO SCH (08:28)
[2023-02-07] MEDS: ASCORBIC ACID 500 MG TABLET PO SCH (09:04)
[2023-02-07] MEDS: CHOLECALCIFEROL 25 MCG TABLET PO SCH (09:04)
[2023-02-07] MEDS: SODIUM CHLORIDE FLUSH 0.9% 10 ML SYRINGE IVP SCH (09:05)
--- NOTE | 2023-02-07 14:47 | DISCHARGE SUMMARY ---
"Discharge Summary Admit Date: 01/28/23 Discharge Date: 02/07/23 Discharging Provider: Mealnie Melchor MD Primary Care Provider: ADDIE Farley Code Status: Attempt Resuscitation Condition at Discharge: Fair Discharge Disposition: 01 Home, Self Care - DIAGNOSES Discharge Diagnoses with Status of Each Condition: 1. Lower abdominal pain 2. Small bowel enteritis 3. Leukocytosis 4. Blood culture contamination with Staphylococcus aureus 5. History of irritable bowel syndrome 6. History of interstitial cystitis 7. Abnormal radiology including CT of abdomen, MRI of pelvis, and vaginal ultrasound 8. Elevated Ca1 25 at 316.8 - HPI History of Present Illness: this is a 77 year old female who presented to the emergency room with chief complaint of bilateral lower abdominal pain since Tuesday associated with some nausea and some chills no fever also constipated.patient denies any fever nourish headaches no blurred vision has some nausea no travel history no severe contact. Persistent symptoms prompted patient to seek medical attention in the emergency room feels evaluated CT abdomen and pelvis suggestive of enteritis mesenteric fat stranding patient was given morphine in the emergency room with mild relief still has some pain. Patient been admitted to the hospital for further management diagnostic workup. She stated that all had lab she's been having bowel issues and does not tolerate antibiotics over the patient was given antibiotics in the emergency room. She's had multiple issues social rather stay of any antibiotics at this time. She does take probiotic at home for bowel issues. - CONSULTS | PROCEDURES Consultations: General surgery with Dr. Benavidez and Dr. Melchor Procedures: Abdomen and pelvis CT was on January 27 and showed the small bowel enteritis, left hepatic lobe cyst that was 2.1 cm, right hepatic lobe cyst 0.8 cm. Gallbladder normal. Cystic lesions in the pancreas redemonstrated with a cyst in the uncinate process 1.2 cm, a cyst at the junction of the pancreatic body and tail measuring 0.8. This was similar to an MRI from July 23, 2022. Progressively increased compared to prior studies. Segmental mild small bowel wall thickening and enhancement in the left lower quadrant. Small amount of intraperitoneal fluid. Abdomen MRI done with pelvis MRI since there was no contrast on the CT. Lower abdominal inflammatory changes present suspicious for acute appendicitis. Multiple dilated loops of small bowel are present and could be reactive to inflammation process but mechanical obstruction difficult to exclude. She had small pancreatic cyst. The pelvic MRI was suspicious for acute appendicitis. No mention of ovaries or uterus. Repeated abdomen pelvis CT February 04 and again limited evaluation of the left thigh mature process of the small bowel. Suggestive of appendicitis. Small bilateral pleural effusions. Blood cultures had staph hominis grow 3 days after being drawn. 2 out of 4 dana ttles that we suspect with contamination. Vaginal ultrasound was done on the day of discharge. Preliminary reports show ovarian cyst. Ovary is larger than normal. Hyperechoic lesions in the uterus, possible polyps. There is mixed solid and fluid. Final report is pending. Primary care provider will need to follow-up on this final report with the patient. - HOSPITAL COURSE Hospital Course: This patient underwent 2 CT scans and a pelvic MRI. All showed matted down small bowel. Compatible with small bowel enteritis. Possible appendicitis. However to general surgery consult stated this is not appendicitis. One of the surgeons suggested work-up for gynecologic neoplasm. CA125 Tumor marker is elevated at >300. CEA normal. Pelvic ultrasound shows larger than normal ovaries but no complex mass. Also thicker than normal uterine lining with multiple hyperechoic areas, possible polyps, but also uterus is thicker than normal. She was on empiric antibiotic therapies for infectious enteritis due to the elevated white cell count. She peaked at 15.3 white cell count. When antibiotics were started White cell count slowly came down and she was 8.5 admission. She had poor appetite, severe anorexia and was not eating very much. Just the thought of food made her nauseated, and if she was successfully to eat food, she had increasing abdominal bloating and pain that was untenable. She valiantly tried to stay active. Would walk in the hallways and in her room. The entire time she would hold onto her distended abdomen that looked as large as a 9-month . She finally had large bowel movements, almost liquid stool for a day or 2 and had resolution of her distention. She was then able to eat food and keep it down. PPN was started and stopped when she was able to eat food. She temporarily received glucose and lipids intravenously. Her abdomen is no longer distended. Pain is mild but still present. 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 I have asked her to please see gastroenterology in follow-up. I did call the GI office that she sees to let them know that she was in the hospital. They shared with me that they see her to follow-up on a pancreatic cyst, but have not been following her for bowel problems. I have also asked her to please follow-up with her primary care provider who can then refer her to gynecology. She may need a diagnostic laparoscopy, or an D&C. I also do not know if the pancreatic cysts could be a neoplasm causing carcinomatosis. And she has liver cysts as well. Patient is discharged in stable condition. Eating. Oxygenating well. Blood pressure normal. Ambulating in the hallways in her rooms. She is 5 foot 4 in ches tall, 59.5 kg. Looks stated age. Neck is supple. Lungs are clear to auscultation and percussion. Regular rate and rhythm without murmur. The abdomen is still slightly distended, still achy over the lower quadrants. But I do not feel a mass, and there is no fluid wave. Hypoactive bowel sounds. She had edema during her stay that resolved. Greater than 30 minutes was spent coordinating discharge This document was made in part using voice recognition software. While efforts are made to proofread this document, sound alike and grammatical errors may occur. - ALLERGIES Allergies/Adverse Reactions: Allergies Allergy/AdvReac Type Severity Reaction Status Date / Time Macrolide Antibiotics AdvReac Nausea Verified 01/28/23 09:06 - MEDICATIONS Home Medications: Ambulatory Orders Medication Instructions Recorded Confirmed Ascorbic Acid 1,000 gm PO DAILY 08/24/13 01/28/23 Multivitamin [Multivitamins] 1 cap PO DAILY 08/24/13 01/28/23 Ashwagandha Root Extract 300 mg PO DAILY 01/28/23 01/28/23 [Ashwagandha] Bacopa Plus Cognative Support 1 each PO DAILY 01/28/23 Calcium Glucarate [Calcium 500 mg PO DAILY 01/28/23 01/28/23 D-Glucarate] Cholecalciferol (Vitamin D3) 50 mcg PO DAILY 01/28/23 01/28/23 [Vitamin D3] Glutamine [l-Glutamine] 1 tbs PO DAILY 01/28/23 01/28/23 Intra-Mag(Mag/Zinc/Potassium) 1 each PO DAILY 01/28/23 Lipogard Liver Function 1 each PO DAILY 01/28/23 QUEtiapine [SEROquel] 25 mg PO DAILY 01/28/23 01/28/23 Quercetin/Bromelain 1 each PO DAILY 01/28/23 Saccharomyces Boulardii/Yeast 1 cap PO DAILY 01/28/23 01/28/23 [Saccharomyces Boulardii-Mos Cp] Turmeric Root Extract 1 cap PO DAILY 01/28/23 01/28/23 [Curcuplex-95] Collagen,Bovine [Collanex] 1 tsp PO DAILY 02/02/23 02/02/23 Psyllium Husk [Konsyl] 1 packet PO DAILY 02/02/23 02/02/23 - LABS Result Diagrams: 02/06/23 09:02 02/07/23 06:07"
--- NOTE | 2023-02-07 16:20 | Ultrasound Report ---
PROCEDURE: Pelvic w/Transvag+Doppler Comp INDICATIONS: enteritis that may be carcinomatosis TECHNIQUE: Real-time scanning was performed of the pelvic organs, with image documentation. Additional endovagi nal scanning was necessary due to incomplete visualization of the adnexal and endometrial structures by transabdominal scanning. Doppler interrogation was performed of the ovaries bilaterally. COMPARISON: 02/04/2023 CT FINDINGS: Uterus: Uterus measures 5.2 x 3.4 x 3.7 cm. Anteverted anteflexed. Heterogeneous echotexture. Endomet rium measures 2 mm focal endometrial thickening however is present measuring up to 1.6 x 2.7 cm. Ovaries: Right ovary measures 2 cc. Left ovary measures 9 cc. There is a simple cyst measuring 1.9 x 1.8 cm in the left ovary. Color and spectral Doppler: flows are documented Other: Prominent bowel versus hydrosalpinx adjacent to the left adnexa. IMPRESSION: Focal endometrial thickening measuring up to 2.7 x 1.6 cm, representing an endometrial lesion versus submucosal fibroid. Cyst is seen in the left ovary. Prominent bowel versus dilated left fallopian tub e with fluid. Consider further evaluation with gynecologic protocol pelvic MRI. Reviewed by: Mega Hurst MD on 02/07/2023 4:18 PM PDT Approved by: Mega Hurst MD on 02/07/2023 4:18 PM PDT Station ID: [id number]
[2023-02-07 16:41] VITALS: BP 147/62
== END 2023-02-07 16:46 | disposition home or self-care (01) | DRG 392 ==
LOC: ED 19:39 → MS2 01-28 01:49
PROVIDERS: ADMIT Internal Medicine; ATTEND Specialist
PROC: 3E0336Z Introduction of Nutritional Substance into Peripheral Vein, Percutaneous Approach (ICD-10-PCS; principal; 2023-02-04)
DX: K52.9 Noninfective gastroenteritis and colitis, unspecified (principal); J90 Pleural effusion, not elsewhere classified; E87.1 Hypo-osmolality and hyponatremia; K86.2 Cyst of pancreas; D72.829 Elevated white blood cell count, unspecified; N85.9 Noninflammatory disorder of uterus, unspecified; R63.0 Anorexia; K76.89 Other specified diseases of liver; R60.0 Localized edema; D72.825 Bandemia; R39.15 Urgency of urination; R35.0 Frequency of micturition; Z68.22 Body mass index [BMI] 22.0-22.9, adult; Z87.19 Personal history of other diseases of the digestive system
CPT/HCPCS: 36415; 72197; 74176; 74177; 74183; 76830; 76856; 80053; 81001; 82378; 83605; 83690; 83735; 84100; 84134; 84478; 85025; 85610; 86304; 87040; 87077; 87150; 87181; 93975; 96365; 96375; 96376; 99284; 99285; A9270; A9585; J3490; Q9967; 81003; 87086

== ENCOUNTER 2023-03-17 16:54 | Outpatient (CLI) | payer MEDICARE ==
--- NOTE | 2023-03-18 18:18 | MRI Report ---
PROCEDURE: MRI thoracic spine without contrast INDICATIONS: THORACIC BACK PAIN TECHNIQUE: Multiplanar multisequence MR images of the thoracic spine was obtained without contrast COMPARISON: None FINDINGS: Alignment and Curvature: There is normal bony alignment. Bone Marrow: Marrow is of normal overall signal. No acute vertebral body compression fractures. Spinal Cord: Visualized spinal cord is normal in size and signal. Paraspinous Soft Tissues: No paravertebral masses. Miscellaneous: On axial images, central canal and foramina appear widely patent at all scanned level s. IMPRESSION: Normal MRI of the thoracic spine Reviewed by: Gaudencio Andrew MD on 03/18/2023 5:16 PM STEPHANIE Approved by: Gaudencio Andrew MD on 03/18/2023 5:16 PM AKVALENTIN Station ID: [id number]
== END 2023-03-17 16:55 | disposition home or self-care (01) ==
LOC: DI 16:54
PROVIDERS: ATTEND Nurse Practitioner Family
DX: M54.6 Pain in thoracic spine (principal)

== ENCOUNTER 2023-08-09 14:15 | Outpatient (CLI) | payer MEDICARE ==
[2023-08-11 21:07] LABS: T-TRANSGLUTAMINASE (TTG) IGA <2 U/mL (0-3); T-TRANSGLUTAMINASE (TTG) IGG 3 U/mL (0-5)
== END 2023-08-09 14:16 | disposition home or self-care (01) ==
LOC: LAB.S 14:15
PROVIDERS: ATTEND Internal Medicine
DX: R14.0 Abdominal distension (gaseous) (principal)
CPT/HCPCS: 36415; 82784; 83993; 85651; 86140; 86364

== ENCOUNTER 2023-09-14 20:47 | Outpatient (CLI) | payer MEDICARE ==
--- NOTE | 2023-09-15 10:49 | Ultrasound Report ---
PROCEDURE: Pelvic w/Transvaginal INDICATIONS: POST MENOPAUSAL BLEEDING TECHNIQUE: Real-time scanning was performed of the pelvic organs, with image documentation. Additional endovagi nal scanning was necessary due to incomplete visualization of the adnexal and endometrial structures by transabdominal scanning. COMPARISON: MRI pelvis on March 30, 2023. FINDINGS: Uterus: Uterus is anteverted and normal in size at 4.7 x 3.4 x 3.4 cm. The myometrium is heterogene ous. The endometrium is ill-defined and thickened. Endometrial echogenic lesion measuring 3 mm with small volume of fluid in the endometrial canal. Ovaries: Bilateral oophorectomy. No adnexal masses are seen. Previously described bilateral vulva cysts IMPRESSION: 1.Endometrium is ill-defined and thickened, as seen on the MRI pelvis dated August 30, 2022, which is abnormal. Recommend sampling for further evaluation. 2.Superimposed endometrial echogenic focus with small volume of fluid may represent blood products, a polyp or a malignancy. 3.Bilateral oophorectomy with no sonographic evidence of adnexal masses. Reviewed by: Brooke Pérez MD on 09/15/2023 10:48 AM PDT Approved by: Brooke Pérez MD on 09/15/2023 10:48 AM PDT Station ID: [id number]
== END 2023-09-14 20:48 | disposition home or self-care (01) ==
LOC: DI 20:47
PROVIDERS: ATTEND Obstetrics & Gynecology
DX: N95.0 Postmenopausal bleeding (principal); R93.89 Abnormal findings on diagnostic imaging of other specified body structures; Z90.79 Acquired absence of other genital organ(s)

== ENCOUNTER 2023-12-17 08:00 | Outpatient (CLI) | payer MEDICARE | END 2023-12-17 23:59 | disposition home or self-care (01) | LOC: LAB.S 08:00 | PROVIDERS: ATTEND Registered Nurse | DX: R30.0 Dysuria (principal) | CPT/HCPCS: 87086 ==

== ENCOUNTER 2023-12-19 08:00 | Outpatient (CLI) | payer MEDICARE | END 2023-12-19 23:59 | disposition home or self-care (01) | LOC: LAB.S 08:00 | PROVIDERS: ATTEND Registered Nurse | DX: R10.2 Pelvic and perineal pain (principal); N75.0 Cyst of Bartholin's gland; R30.0 Dysuria; N95.2 Postmenopausal atrophic vaginitis | CPT/HCPCS: 87070 ==